=== PATIENT | female | born 1930 | race Caucasian/White ===

== ENCOUNTER 2018-01-27 09:18 | Inpatient (IN) ==
--- NOTE | 2018-01-27 09:51 | ED ---
HPI General Chief Complaint: Shortness of Breath/Dyspnea Stated Complaint: Chest Pains/Evac Source: patient Mode of arrival: EMS Limitations: no limitations History of Present Illness The patient is a 87-year-old female who presents to the emergency department via EMS for shortness of breath. The patient states she developed shortness of breath this morning, became short of breath when going to the bathroom. The patient arrived via EMS who provided the patient nebulizers and Solu-Medrol with oxygen prior to arrival. The patient states her symptoms have improved. Patient denies any known history of pulmonary disorders including COPD, bronchitis, pneumonia, congestive heart failure, and pulmonary embolism. The patient states she lives at home with her 5 grandchildren. The patient states she recently broke her left hip. She does note swelling of the right lower extremity, is unable to quantify the time the right lower extremity has been swollen. The patient is a somewhat limited historian but denies any chest pain, nausea, vomiting, abdominal pain, fever, chills, or sweats. She does note her symptoms improved after medications were administered by EMS. MD Complaint: shortness of breath Onset (ago): hour(s) Severity: moderate Consistency/Duration: improved Relieving factors: bronchodilators and medication Exacerbating factors: nothing Associated symptoms: denies other symptoms Treatment prior to arrival: oxygen, bronchodilator and other Related Data Home oxygen amount: none Home Medications Medication Instructions Recorded Confirmed No Known Home Medications 01/27/18 01/27/18 Allergies Allergy/AdvReac Type Severity Reaction Status Date / Time No Known Allergies Allergy Unverified 01/27/18 09:20 Review of Systems ROS: all other systems reviewed are negative [facility] Medical History Medical History Patient denies medical problems (Acute) Surgical History Surgical History No history of previous surgery (Acute) Social History Social History Substance History: No History of Abuse Second Hand Smoke Exposure: No Smoking Status: Never smoker How Often Do You Have a Drink Containing Alcohol: Never Recent Travel in [facility] within the Last 8 Weeks: No Recent Out of Country Travel within the Last 8 Weeks: No Immunization History Tetanus Immunization: Unsure Hx Influenza Vaccine This Season: No Exam Narrative Exam Narrative: GENERAL: Awake, alert, pleasant 87-year-old female who appears her stated age and is in mild respiratory distress. SKIN: Focused skin assessment warm/dry. HEAD: Atraumatic. Normocephalic. EYES: Pupils equal and round. No scleral icterus. No injection or drainage. ENT: No nasal bleeding or discharge. Poor dentition. Dry mucous membranes. NECK: Trachea midline. No JVD. CARDIOVASCULAR: Regular rate and rhythm. No murmur appreciated. Heart rate in the 90s. RESPIRATORY: No accessory muscle use. Rales in the bases bilaterally. GASTROINTESTINAL: Abdomen soft, non-tender, nondistended. MUSCULOSKELETAL: The right lower extremity appears slightly longer than the left lower extremity. The right calf is edematous and swollen when compared to the left. Positive distal pulses. The patient is able flex the hips and knees bilaterally. Back: No CVA tenderness. NEUROLOGICAL: Awake and alert. No obvious cranial nerve deficits. Motor grossly within normal limits. Normal speech. PSYCHIATRIC: Appropriate mood and affect; insight and judgment normal. Course Initial Documented Vital Signs Temperature 97.5 F L 01/27/18 09:20 Pulse Rate 97 H 01/27/18 09:20 Respiratory Rate 20 01/27/18 09:20 Blood Pressure 148/84 H 01/27/18 09:20 Pulse Oximetry 92 L 01/27/18 09:20 Last Documented Vital Signs Temperature 97.5 F L 01/27/18 09:20 Pulse Rate 92 H 01/27/18 10:48 Respiratory Rate 20 01/27/18 10:48 Blood Pressure 128/72 01/27/18 10:48 Pulse Oximetry 95 01/27/18 10:48 Clinical Decision Support PERC Rule Age greater than or equal to 50: Yes HR greather than or equal to 100: No Sa02 on room air is less than 95%: Yes Unilateral Leg Swelling: Yes Hemoptysis: No Recent Surgery or Trauma: No Prior PE or DVT: No Hormone Use: No Medical Decision Making MDM Narrative Medical decision making narrative: IV was established, labs are drawn and sent, and the patient was placed on cardiac telemetry monitoring and continuous pulse oximetry monitoring. EKG was ordered and interpreted. Chest x-ray was obtained. Ultrasound was ordered of the right lower extremity to evaluate for DVT. Ultrasound is negative for DVT. Chest x-ray reveals pulmonary edema. BNP is greater than 1000. Troponin is positive at 0.85. The patient was administered aspirin and Lasix. The patient appears to have new onset CHF, therefore, will be admitted, may benefit from echocardiogram and cardiology evaluation. The patient's potassium was low at 3.0, will be replaced orally. Medical Screen Exam Complete: Yes Emergency Medical Condition: Yes Lab Data Lab results reviewed: Yes I reviewed the patient's lab results. Lab results narrative: Elevated troponin of 0.85, potassium 3.0. BNP of 1096. Result diagrams: 01/27/18 10:00 01/27/18 10:00 Lab Results 01/27/18 01/27/18 01/27/18 Range/Units 10:00 10:00 10:00 CBC w Diff Auto diff final WBC 11.0 (4.0-11.0) th/mm3 RBC 3.99 L (4.00-5.30) mil/mm3 Hgb 12.9 (11.6-15.3) gm/dL Hct 38.9 (35.0-46.0) % MCV 97.5 (80.0-100.0) fL MCH 32.3 (27.0-34.0) pg MCHC 33.2 (32.0-36.0) % RDW 14.6 (11.6-17.2) % Plt Count 160 (150-450) th/mm3 MPV 10.5 (7.0-11.0) fL Neut % (Auto) 86.6 H (16.0-70.0) % Lymph % (Auto) 7.0 L (9.0-44.0) % Izard % (Auto) 5.8 (0.0-8.0) % Eos % (Auto) 0.3 (0.0-4.0) % Baso % (Auto) 0.3 (0.0-2.0) % Neut # (Auto) 9.6 H (1.8-7.7) th/mm3 Lymph # (Auto) 0.8 L (1.0-4.8) th/mm3 Izard # (Auto) 0.6 (0.0-0.9) th/mm3 Eos # (Auto) 0.0 (0.0-0.4) th/mm3 Baso # (Auto) 0.0 (0.0-0.2) th/mm3 WBC Differential . Differential Comment . PT 11.1 (9.8-11.6) sec INR 1.1 Ratio APTT 21.7 L (24.3-30.1) sec Sodium 148 H (136-145) meq/L Potassium 3.0 L (3.5-5.1) meq/L Chloride 116 H (98-107) meq/L Carbon Dioxide 21.5 (21.0-32.0) meq/L Anion Gap 11 (5-15) meq/L BUN 19 H (7-18) mg/dL Creatinine 0.95 (0.50-1.00) mg/dL Estimated GFR 56 L (>89) mL/min Random Glucose 116 H (74-106) mg/dL Calcium 8.3 L (8.5-10.1) mg/dL Magnesium 2.1 (1.5-2.5) mg/dL Total Bilirubin 0.5 (0.2-1.0) mg/dL AST 22 (15-37) U/L ALT 19 (10-53) U/L Alkaline Phosphatase 57 (45-117) U/L Troponin I 0.85 H* (0.02-0.05) ng/mL B-Natriuretic Peptide (0-100) pg/mL Total Protein 6.5 (6.4-8.2) g/dL Albumin 3.1 L (3.4-5.0) g/dL Urine Color (Yellw/Straw) Urine Clarity (Clear) Urine pH (5.0-8.5) Ur Specific [place] (1.002-1.035) Urine Protein (Neg-Trace) mg/dL Urine Glucose (UA) (Negative) mg/dL Urine Ketones (Negative) mg/dL Urine Occult Blood (Negative) Urine Nitrate (Negative) Urine Bilirubin (Negative) Urine Urobilinogen (Less than 2) mg/dL Ur Leukocyte Esterase (Negative) Urine RBC (0-3) /hpf Urine WBC (0-5) /hpf Ur Squamous Epith Cells (0-5) /hpf Urine Bacteria (None) /hpf Micro UA Comment Ur Microscopic Review Urine Culture Comments 01/27/18 01/27/18 Range/Units 10:00 10:00 CBC w Diff WBC (4.0-11.0) th/mm3 RBC (4.00-5.30) mil/mm3 Hgb (11.6-15.3) gm/dL Hct (35.0-46.0) % MCV (80.0-100.0) fL MCH (27.0-34.0) pg MCHC (32.0-36.0) % RDW (11.6-17.2) % Plt Count (150-450) th/mm3 MPV (7.0-11.0) fL Neut % (Auto) (16.0-70.0) % Lymph % (Auto) (9.0-44.0) % Izard % (Auto) (0.0-8.0) % Eos % (Auto) (0.0-4.0) % Baso % (Auto) (0.0-2.0) % Neut # (Auto) (1.8-7.7) th/mm3 Lymph # (Auto) (1.0-4.8) th/mm3 [place] # (Auto) (0.0-0.9) th/mm3 Eos # (Auto) (0.0-0.4) th/mm3 Baso # (Auto) (0.0-0.2) th/mm3 WBC Differential Differential Comment PT (9.8-11.6) sec INR Ratio APTT (24.3-30.1) sec Sodium (136-145) meq/L Potassium (3.5-5.1) meq/L Chloride (98-107) meq/L Carbon Dioxide (21.0-32.0) meq/L Anion Gap (5-15) meq/L BUN (7-18) mg/dL Creatinine (0.50-1.00) mg/dL Estimated GFR (>89) mL/min Random Glucose (74-106) mg/dL Calcium (8.5-10.1) mg/dL Magnesium (1.5-2.5) mg/dL Total Bilirubin (0.2-1.0) mg/dL AST (15-37) U/L ALT (10-53) U/L Alkaline Phosphatase (45-117) U/L Troponin I (0.02-0.05) ng/mL B-Natriuretic Peptide 1096 H (0-100) pg/mL Total Protein (6.4-8.2) g/dL Albumin (3.4-5.0) g/dL Urine Color Yellow (Yellw/Straw) Urine Clarity Slightly cloudy (Clear) Urine pH 6.0 (5.0-8.5) Ur Specific [place] Greater/equal 1.030 (1.002-1.035) Urine Protein Negative (Neg-Trace) mg/dL Urine Glucose (UA) Negative (Negative) mg/dL Urine Ketones Negative (Negative) mg/dL Urine Occult Blood Negative (Negative) Urine Nitrate Positive H (Negative) Urine Bilirubin Negative (Negative) Urine Urobilinogen 1.0 (Less than 2) mg/dL Ur Leukocyte Esterase Negative (Negative) Urine RBC 0-3 (0-3) /hpf Urine WBC 0-5 (0-5) /hpf Ur Squamous Epith Cells 0-5 (0-5) /hpf Urine Bacteria Many H (None) /hpf Micro UA Comment Cath-culture ind Ur Microscopic Review Microscopic reviewed Urine Culture Comments Cath-cult indicated Imaging Data Attestation: I personally reviewed and interpreted this imaging study as follows : My impression: Pulmonary edema. Radiologist's impression: Chest X-Ray 01/27/18 09:44 CONCLUSION: 1. Cardiomegaly. 2. Small-moderate bilateral pleural effusions. 3. Moderate pulmonary vascular congestion. 4. Degenerative changes and scoliosis of the thoracolumbar spine. 5. Compression deformity is involving the lower thoracic spine. Venous Doppler Study 01/27/18 09:44 CONCLUSION: 1. Negative for deep venous thrombosis Discharge Plan Discharge Disposition Patient Disposition: 30 Still Patient Discharge Condition Condition: Stable Discharge Details Diagnosis: Congestive heart failure, Pulmonary edema, Elevated troponin Physicians Team ED Provider: James Rodríguez Rxs /Orders / Referrals /Forms Prescriptions: No Action No Known Home Medications RF: 0 Discharge Interventions Interventions: Vital Signs Last Done: 01/27/18 10:48 Status ED Status: Pending Admission
[2018-01-27 10:04] LABS: Baso % (Auto) 0.3 % (0.0-2.0); Eos % (Auto) 0.3 % (0.0-4.0); Hematocrit 38.9 % (35.0-46.0); Hemoglobin 12.9 gm/dL (11.6-15.3); Lymph # (Auto) 0.8 th/mm3 (1.0-4.8); Mean Corpuscular HGB Conc 33.2 % (32.0-36.0); Mean Corpuscular Hemoglobin 32.3 pg (27.0-34.0); Mean Corpuscular Volume 97.5 fL (80.0-100.0); Mean Platelet Volume 10.5 fL (7.0-11.0); Mono # (Auto) 0.6 th/mm3 (0.0-0.9); Mono % (Auto) 5.8 % (0.0-8.0); Neut # (Auto) 9.6 th/mm3 (1.8-7.7); Neut % (Auto) 86.6 % (16.0-70.0); Platelet Count 160 th/mm3 (150-450); Red Blood Count 3.99 mil/mm3 (4.00-5.30); Red Cell Distribution Width 14.6 % (11.6-17.2)
[2018-01-27 10:05] LABS: Bilirubin,Urine Negative (Negative); Clarity,Urine Slightly Cloudy (Clear); Color,Urine Yellow (Yellw/Straw); Glucose,Urine (UA) Negative (Negative); Leukocyte Esterase,Urine Negative (Negative); Nitrite,Urine Positive (Negative); Specific Gravity,Urine Greater/Equal 1.030 (1.002-1.035)
[2018-01-27 10:11] LABS: Bacteria,Urine Many /hpf; RBC,Urine 0-3 /hpf (0-3); Squamous Epithelial Cell,Urine 0-5 /hpf (0-5); WBC,Urine 0-5 /hpf (0-5)
[2018-01-27 10:13] LABS: Chloride 116 meq/L (98-107); Sodium 148 meq/L (136-145)
[2018-01-27 10:16] LABS: Calcium 8.3 mg/dL (8.5-10.1)
[2018-01-27 10:17] LABS: Albumin 3.1 g/dL (3.4-5.0); Anion Gap 11 meq/L (5-15); Blood Urea Nitrogen 19 mg/dL (7-18); Carbon Dioxide 21.5 meq/L (21.0-32.0); Glucose,Random 116 mg/dL (74-106); Magnesium 2.1 mg/dL (1.5-2.5)
[2018-01-27 10:20] LABS: Alanine Aminotransferase 19 U/L (10-53); Aspartate Aminotransferase 22 U/L (15-37); Glomerular Filtration Rate 56 mL/min (>89)
[2018-01-27 10:21] LABS: Total Protein 6.5 g/dL (6.4-8.2)
[2018-01-27 10:23] LABS: Alkaline Phosphatase 57 U/L (45-117)
[2018-01-27 10:24] LABS: INR 1.1 Ratio; Prothrombin Time 11.1 sec (9.8-11.6)
[2018-01-27 10:25] LABS: Activated Partial Thrombo Time 21.7 sec (24.3-30.1)
[2018-01-27 10:35] LABS: Troponin I 0.85 ng/mL (0.02-0.05)
--- NOTE | 2018-01-27 10:40 | US ---
EXAM DATE: 01/27/2018 10:27 AM EDT AGE/SEX: 87 years / Female INDICATIONS: Shortness of breath. Right leg swelling. CLINICAL DATA: This is the patient's initial encounter. Patient reports that signs and symptoms have been present for 1 day and indicates a pain score of 4/10. MEDICAL/SURGICAL HISTORY: . Shortness of breath. Right leg swelling. Left hip break. None. COMPARISON: No prior exams available for comparison. TECHNIQUE: Venous ultrasound of both lower extremities was performed from the inguinal ligament to t he proximal calf. Real-time, color Doppler and spectral tracing, compression and augmentation techni ques were used. FINDINGS: Normal compression of the deep venous system from the inguinal region to the proximal calf . No echogenic clot is seen. Normal response of the venous system to augmentation and respiration. CONCLUSION: 1. Negative for deep venous thrombosis Electronically signed by: Varun Sharma MD 01/27/2018 10:39 AM EDT
--- NOTE | 2018-01-27 10:43 | XR ---
EXAM DATE: 01/27/2018 10:28 AM EDT AGE/SEX: 87 years / Female INDICATIONS: Short of breath. CLINICAL DATA: This is the patient's initial encounter. Patient reports that signs and symptoms have been present for 1 day and indicates a pain score of 4/10. MEDICAL/SURGICAL HISTORY: Non-responsive. None. COMPARISON: No prior exams available for comparison. FINDINGS: The heart is enlarged. Small-moderate bilateral pleural effusions are noted. Moderate pulmonary vascu lar congestion is noted. Degenerative changes and scoliosis of the thoracolumbar spine are noted. Com pression deformities are noted within the lower thoracic spine. CONCLUSION: 1. Cardiomegaly. 2. Small-moderate bilateral pleural effusions. 3. Moderate pulmonary vascular congestion. 4. Degenerative changes and scoliosis of the thoracolumbar spine. 5. Compression deformity is involving the lower thoracic spine. Electronically signed by: Jerson Martini MD 01/27/2018 10:42 AM EDT
[2018-01-27] MEDS ORDERED: Senna/Docusate Sodium 8.6/50 MG Tablet PO PRN (11:50)
[2018-01-27] MEDS ORDERED: Aluminum/Magnesium/Simethacone Susp 30 ML UDC PO PRN (11:50)
[2018-01-27] MEDS ORDERED: Docusate Sodium 100 MG Capsule PO PRN (11:50)
[2018-01-27] MEDS: Heparin - SQ 10,000 UNITS/ML Vial SQ SCH ×2 (12:23→20:51)
--- NOTE | 2018-01-27 12:57 | P.HP ---
History of Present Illness Primary Care Physician: No Primary Care Physician Chief Complaint: Shortness of breath History of Present Illness: This is a 87-year-old female with a history of hypertension. She was brought in by EMS because of shortness of breath. Patient was in the usual state of health until this morning after using the restroom when she complained of difficulty breathing associated with palpitations and dizziness. She also reported that her chest was hurting. Patient is a poor historian. She is hard of hearing and speech is difficult to understand as she is edentulous. EMS provided nebulization and Solu-Medrol as well as oxygen. Prehospital EKG independently reviewed by me with sinus rhythm T changes in the inferior and lateral leads with poor R-wave progression. By the time patient arrived in the emergency room, symptoms have improved. She also received 40 milligrams IV Lasix. Currently tolerating 3 L nasal cannula. Repeat EKG shows sinus rhythm poor R progression with T inversion in V2 through V4. Patient also has chronic bilateral lower extremity swelling denies pain. She reports she recently broke her left hip. 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 She uses a walker. Doppler sonogram shows no DVT. All other systems reviewed negative. Patient seen with daughter. Case discussed with ER and cardiology. Inpatient Certification: I certify that the inpatient services were ordered in accordance with Medicare regulations governing the order. This includes certification that hospital inpatient services are reasonable and necessary and in the case of services not specified as inpatient-only under 42 CFR 419.22(n), that they are appropriately provided as inpatient services in accordance to with the 2-midnight benchmark under 43 CFR 412.3(e) Estimated Total Length of Stay (Days): 2 Plans for Post Hospital Care: Not yet determined Review of Systems All other systems reviewed negative except as stated in HPI PMFSH - History History Provided By: Nurse [employer] / EMT - Medical History Medical History: Medical History (Last Updated 01/27/18 @ 12:51 by Luis Hutchinson MD) Patient denies medical problems (Acute) HTN (hypertension) - Surgical History Surgical History: Surgical History (Last Updated 01/27/18 @ 12:52 by Luis Hutchinson MD) No history of previous surgery (Acute) History of hip surgery - Family History Family History: Family History (Last Updated 01/27/18 @ 12:52 by Luis Hutchinson MD) Mother CVA (cerebral vascular accident) - Tobacco History Second Hand Smoke Exposure: No Smoking Status: Never smoker - Alcohol History How Often Do You Have a Drink Containing Alcohol: Never - Substance Use History Substance History: No History of Abuse - Travel History Recent Travel in the [place] Within the Last 8 Weeks: No Recent Travel Out of the Country Within the Last 8 Weeks: No - Immunization History Tetanus Immunization: Unsure Hx Influenza Vaccine This Season: No Medications and Allergies Active Medications: Active Medications Acetaminophen (Tylenol) 650 mg PO Q4H PRN PRN Reason: Temp > 100.4 Al Hydrox/Mg Hydrox/Simethicone (Mag-Al Plus Susp Liq) 30 ml PO Q6H PRN PRN Reason: DYSPEPSIA Al Hydroxide/Mg Hydroxide (Milk Of Magnesia Liq) 30 ml PO DAILY PRN PRN Reason: SEVERE CONSITIPATION Aspirin (Aspirin Chew) 81 mg PO DAILY [facility] Calcium Carbonate (Tums Chew) 1,000 mg CHEW TID PRN PRN Reason: DYSPEPSIA Docusate Sodium (Colace) 100 mg PO BID PRN PRN Reason: MILD CONSTIPATION Furosemide (Lasix Inj) 40 mg IV.PUSH BID@0900,1800 [facility] Heparin Sodium (Porcine) (Heparin Inj) 5,000 units SQ Q12HR [facility] Last Admin: 01/27/18 12:23 Dose: 5,000 units Nitroglycerin (Nitrostat Sl) 0.4 mg SL Q5M PRN PRN Reason: CHEST PAIN Ondansetron HCl (Zofran Inj) 4 mg IV.PUSH Q6H PRN PRN Reason: NAUSEA Potassium Chloride (K-Dur) 20 meq PO BID [facility] Senna/Docusate Sodium (Lourdes-Colace) 1 tab PO BID PRN PRN Reason: MODERATE - SEVERE CONSTIPATION Sodium Chloride (Ns Flush) 2 ml IV.FLUSH BID [facility] Sodium Chloride (Ns Flush) 2 ml IV.FLUSH UNSCH PRN PRN Reason: FLUSH AFTER USING IV ACCESS Allergies Allergy/AdvReac Type Severity Reaction Status Date / Time No Known Allergies Allergy Unverified 01/27/18 09:20 Home Medications Medication Instructions Recorded Confirmed Type No Known Home Medications 01/27/18 01/27/18 History Exam Vital signs: Vital Signs 01/27/18 09:20 01/27/18 09:44 09/21/18 10:48 Temperature 97.5 F L Pulse Rate 97 H 92 H Respiratory Rate 20 20 Blood Pressure 148/84 H 128/72 Pulse Oximetry 92 L 93 L 95 Intake & Output 01/26/18 01/27/18 01/27/18 18:59 06:59 18:59 Weight 46 kg Narrative: GENERAL: Well-developed, well-nourished in no distress on 3 L nasal cannula SKIN: Warm and dry. HEAD: Atraumatic. Normocephalic. EYES: Pupils equal and round. No scleral icterus. No injection or drainage. ENT: No nasal bleeding or discharge. Mucous membranes pink and moist. NECK: Trachea midline. Positive JVD CARDIOVASCULAR: Regular rate and rhythm. RESPIRATORY: No accessory muscle use. Decreased breath sounds equal bilaterally. Right basal crackles GASTROINTESTINAL: Abdomen soft, non-tender, nondistended. MUSCULOSKELETAL: Extremities without clubbing, cyanosis with bilateral lower extremity pitting edema. Left lower extremity shorter. NEUROLOGICAL: Awake and alert. No obvious cranial nerve deficits. Motor grossly within normal limits. Five out of 5 muscle strength in the arms and legs. It is hard to understand PSYCHIATRIC: Appropriate mood and affect; insight and judgment normal. Results - Labs CBC & Chem 7: 01/27/18 10:00 01/27/18 10:00 Labs: Laboratory Results - last 24 hr 01/27/18 01/27/18 01/27/18 10:00 10:00 10:00 CBC w Diff Auto diff final WBC 11.0 RBC 3.99 L Hgb 12.9 Hct 38.9 MCV 97.5 MCH 32.3 MCHC 33.2 RDW 14.6 Plt Count 160 MPV 10.5 Neut % (Auto) 86.6 H Lymph % (Auto) 7.0 L Charles % (Auto) 5.8 Eos % (Auto) 0.3 Baso % (Auto) 0.3 Neut # (Auto) 9.6 H Lymph # (Auto) 0.8 L Charles # (Auto) 0.6 Eos # (Auto) 0.0 Baso # (Auto) 0.0 WBC Differential . Differential Comment . PT 11.1 INR 1.1 APTT 21.7 L Sodium 148 H Potassium 3.0 L Chloride 116 H Carbon Dioxide 21.5 Anion Gap 11 BUN 19 H Creatinine 0.95 Estimated GFR 56 L Random Glucose 116 H Calcium 8.3 L Magnesium 2.1 Total Bilirubin 0.5 AST 22 ALT 19 Alkaline Phosphatase 57 Troponin I 0.85 H* B-Natriuretic Peptide Total Protein 6.5 Albumin 3.1 L Urine Color Urine Clarity Urine pH Ur Specific [place] Urine Protein Urine Glucose (UA) Urine Ketones Urine Occult Blood Urine Nitrate Urine Bilirubin Urine Urobilinogen Ur Leukocyte Esterase Urine RBC Urine WBC Ur Squamous Epith Cells Urine Bacteria Micro UA Comment Ur Microscopic Review Urine Culture Comments 01/27/18 01/27/18 10:00 10:00 CBC w Diff WBC RBC Hgb Hct MCV MCH MCHC RDW Plt Count MPV Neut % (Auto) Lymph % (Auto) Charles % (Auto) Eos % (Auto) Baso % (Auto) Neut # (Auto) Lymph # (Auto) Charles # (Auto) Eos # (Auto) Baso # (Auto) WBC Differential Differential Comment PT INR APTT Sodium Potassium Chloride Carbon Dioxide Anion Gap BUN Creatinine Estimated GFR Random Glucose Calcium Magnesium Total Bilirubin AST ALT Alkaline Phosphatase Troponin I B-Natriuretic Peptide 1096 H Total Protein Albumin Urine Color Yellow Urine Clarity Slightly cloudy Urine pH 6.0 Ur Specific [place] Greater/equal 1.030 Urine Protein Negative Urine Glucose (UA) Negative Urine Ketones Negative Urine Occult Blood Negative Urine Nitrate Positive H Urine Bilirubin Negative Urine Urobilinogen 1.0 Ur Leukocyte Esterase Negative Urine RBC 0-3 Urine WBC 0-5 Ur Squamous Epith Cells 0-5 Urine Bacteria Many H Micro UA Comment Cath-culture ind Ur Microscopic Review Microscopic reviewed Urine Culture Comments Cath-cult indicated - Imaging Impressions Chest X-Ray 01/27/18 09:44 CONCLUSION: 1. Cardiomegaly. 2. Small-moderate bilateral pleural effusions. 3. Moderate pulmonary vascular congestion. 4. Degenerative changes and scoliosis of the thoracolumbar spine. 5. Compression deformity is involving the lower thoracic spine. Venous Doppler Study 01/27/18 09:44 CONCLUSION: 1. Negative for deep venous thrombosis Caprini VTE Risk Assessment Caprini VTE Risk Assessment: Moderate/High Risk (score >= 2) Caprini Risk Assessment Model: Point Value = 1 Point Value = 2 Point Value = 3 Point Value = 5 Age 41-60 Minor surgery BMI > 25 kg/m2 Swollen legs Varicose veins or History of unexplained or recurrent spontaneous Oral contraceptives or hormone replacement Sepsis (< 1 month) Serious lung disease, including pneumonia (< 1 month) Abnormal pulmonary function Acute myocardial infarction Congestive heart failure (< 1 month) History of inflammatory bowel disease Medical patient at bed rest Age 61-74 Arthroscopic surgery Major open surgery (> 45 min) Laparoscopic surgery (> 45 min) Malignancy Confined to bed (> 72 hours) Immobilizing plaster cast Central venous access Age >= 75 History of VTE Family history of VTE Factor V Leiden Prothrombin [id number] Lupus anticoagulant Anticardiolipin antibodies Elevated serum homocysteine Heparin-induced thrombocytopenia Other congenital or acquired thrombophilia Stroke (< 1 month) Elective arthroplasty Hip, pelvis, or leg fracture Acute spinal cord injury (< 1 month) Prophylaxis Regimen: Total Risk Factor Score Risk Level Prophylaxis Regimen 0-1 Low Early ambulation 2 Moderate Order ONE of the following: *Sequential Compression Device (SCD) *Heparin 5000 units SQ BID 3-4 Higher Order ONE of the following medications: *Heparin 5000 units SQ TID *Enoxaparin/Lovenox 40 mg SQ daily (WT < 150 kg, CrCl > 30 mL/min) *Enoxaparin/Lovenox 30 mg SQ daily (WT < 150 kg, CrCl > 10-29 mL/min) *Enoxaparin/Lovenox 30 mg SQ BID (WT < 150 kg, CrCl > 30 mL/min) AND/OR *Sequential Compression Device (SCD) 5 or more Highest Order ONE of the following medications: *Heparin 5000 units SQ TID (Preferred with Epidurals) *Enoxaparin/Lovenox 40 mg SQ daily (WT < 150 kg, CrCl > 30 mL/min) *Enoxaparin/Lovenox 30 mg SQ daily (WT < 150 kg, CrCl > 10-29 mL/min) *Enoxaparin/Lovenox 30 mg SQ BID (WT < 150 kg, CrCl > 30 mL/min) AND *Sequential Compression Device (SCD) Assessment and Plan - Plan This is an 87-year-old female with a history of hypertension. She presents to the emergency department because of shortness of breath yesterday with chest pain, palpitations and dizziness. Chest x-ray interpreted by me with cardiomegaly and bilateral pleural effusion consistent with pulmonary edema. EKG tracing with no ST elevation. Troponin 0.85. BNP 1000 New onset heart failure with hypoxia. Patient will be admitted for further treatment. Continue diuresis with IV Lasix, CHF education, I/O and monitor weight. Oxygen to keep saturation at least 92%. Obtain 2D echo. NSTEMI. Currently pain-free. Trend cardiac enzymes. Start aspirin, beta- delma and sublingual nitroglycerin. Consult cardiology and patient will be transferred to [facility]. Hypokalemia. Replace with 80 mg p.o. potassium 1. Repeat BMP and magnesium in the morning. Chronic bilateral lower extremity swelling. Doppler sonogram negative for DVT on the right lower extremity Abnormal urinalysis. No UTI symptoms. Follow-up urine culture DVT prophylaxis with SCD and subcu heparin Discharge Planning: Transfer to [facility]
--- NOTE | 2018-01-27 14:11 | ECHRPT ---
Indication: HEART FAILURE CONCLUSIONS Normal left ventricular size. Wall thickness is normal. The left ventricular systolic function is severely reduced with an estimated ejection fraction in th e range of 30-35%. There is diffuse global hypokinesis with distinct regional wall motion abnormalities. There is anterior, anterolateral, apical, and inferoapical akinesis. The left atrial size is [id number] dilated. [id number] mitral valve regurgitation. There is moderate tricuspid regurgitation. The estimated pulmonary arterial pressure is 43.6 mmHg. A right sided pleural effusion is present. BP: / HR: Rhythm: Sinus MEASUREMENTS (Male / Female) Normal Values Technical Quality:Very technically difficult study DOPPLER AV Peak Velocity 116.0 cm/s AV Peak Gradient 5.4 mmHg AV Mean Gradient 3.0 mmHg AV Velocity Time Integral 20.0 cm LVOT Peak Velocity 68.4 cm/s LVOT Peak Gradient 1.9 mmHg LVOT Velocity Time Integral 11.9 cm Mitral E Point Velocity 64.2 cm/s Mitral A Point Velocity 96.3 cm/s Mitral E to A Ratio 0.7 LV E' Lateral Velocity 3.8 cm/s Mitral E to LV E' Lateral Ratio 16.9 LV E' Septal Velocity 3.4 cm/s Mitral E to LV E' Septal Ratio 18.8 TR Peak Velocity 290.0 cm/s TR Peak Gradient 33.6 mmHg Right Atrial Pressure 10.0 mmHg Pulmonary Artery Systolic Pressu 43.6 mmHg Right Ventricular Systolic Press 43.6 mmHg PV Peak Velocity 54.9 cm/s PV Peak Gradient 1.2 mmHg FINDINGS LEFT VENTRICLE Normal left ventricular size. Wall thickness is normal. The left ventricular systolic function is severely reduced with an estimated ejection fraction in th e range of 30-35%. There is diffuse global hypokinesis with distinct regional wall motion abnormalities. There is anterior, anterolateral, apical, and inferoapical akinesis. RIGHT VENTRICLE Normal right ventricular size and systolic function. LEFT ATRIUM The left atrial size is ixyc-[id number] dilated. RIGHT ATRIUM The right atrial size is normal. ATRIAL SEPTUM No atrial level shunt is demonstrated by color flow Doppler interrogation. AORTA The aortic root and proximal ascending aorta are not well visualized. MITRAL VALVE Qqmx-[id number] mitral valve regurgitation. AORTIC VALVE Trileaflet aortic valve. No aortic valve stenosis or regurgitation. TRICUSPID VALVE There is moderate tricuspid regurgitation. The estimated pulmonary arterial pressure is 43.6 mmHg. PULMONARY VALVE No pulmonary valve regurgitation or stenosis. VESSELS The inferior vena cava is normal in size. PERICARDIUM No pericardial effusion. A right sided pleural effusion is present. Javier Persaud MD, FACC (Electronically Signed) Final Date:27 January 2018 14:10
--- NOTE | 2018-01-27 15:48 | P.CONCA ---
History of Present Illness Primary Care Provider: No Primary Care Physician Chief Complaint: Shortness of breath History of Present Illness: 87-year-old female with no known past medical history who presented for acute onset of shortness of breath today. Patient is a poor historian, hard of hearing, has some slurred speech. She reports some recent chest pain but not currently. Her chest x-ray shows moderate bilateral pleural effusions and pulmonary edema. She has quite a bit of leg swelling. She has been started on Lasix. Her EKG shows poor R-wave progression in the anterior leads with anterior T-wave inversions adjusting ischemia. She denies any prior history of heart disease. Initial troponin 0.85. BNP 1000. Patient is awaiting transfer up to [facility] for consideration of ischemic evaluation. An echocardiogram is already been done which showed EF 3035% with diffuse global hypokinesis with distinct regional wall motion abnormalities. Review of Systems All other systems reviewed negative except as stated in HPI PMFSH - History History Provided By: Patient, Medical Record - Medical History Medical History: Medical History (Last Updated 01/27/18 @ 12:51 by Luis Hutchinson MD) Patient denies medical problems (Acute) HTN (hypertension) - Surgical History Surgical History: Surgical History (Last Updated 01/27/18 @ 12:52 by Luis Hutchinson MD) No history of previous surgery (Acute) History of hip surgery - Family History Family History: Family History (Last Updated 01/27/18 @ 12:52 by Luis Hutchinson MD) Mother CVA (cerebral vascular accident) - Tobacco History Second Hand Smoke Exposure: No Smoking Status: Never smoker - Alcohol History How Often Do You Have a Drink Containing Alcohol: Never - Substance Use History Substance History: No History of Abuse - Travel History Recent Travel in the [place] Within the Last 8 Weeks: No Recent Travel Out of the Country Within the Last 8 Weeks: No - Immunization History Tetanus Immunization: Unsure Hx Influenza Vaccine This Season: No Medications and Allergies Allergies Allergy/AdvReac Type Severity Reaction Status Date / Time No Known Allergies Allergy Unverified 01/27/18 09:20 Home Medications Medication Instructions Recorded Confirmed Type No Known Home Medications 01/27/18 01/27/18 History Active Medications: Active Medications Acetaminophen (Tylenol) 650 mg PO Q4H PRN PRN Reason: Temp > 100.4 Al Hydrox/Mg Hydrox/Simethicone (Mag-Al Plus Susp Liq) 30 ml PO Q6H PRN PRN Reason: DYSPEPSIA Al Hydroxide/Mg Hydroxide (Milk Of Magnesia Liq) 30 ml PO DAILY PRN PRN Reason: SEVERE CONSITIPATION Aspirin (Aspirin Chew) 81 mg PO DAILY [facility] Calcium Carbonate (Tums Chew) 1,000 mg CHEW TID PRN PRN Reason: DYSPEPSIA Docusate Sodium (Colace) 100 mg PO BID PRN PRN Reason: MILD CONSTIPATION Furosemide (Lasix Inj) 40 mg IV.PUSH BID@0900,1800 [facility] Heparin Sodium (Porcine) (Heparin Inj) 5,000 units SQ Q12HR [facility] Last Admin: 01/27/18 12:23 Dose: 5,000 units Metoprolol Tartrate (Lopressor) 12.5 mg PO BID [facility] Nitroglycerin (Nitrostat Sl) 0.4 mg SL Q5M PRN PRN Reason: CHEST PAIN Ondansetron HCl (Zofran Inj) 4 mg IV.PUSH Q6H PRN PRN Reason: NAUSEA Potassium Chloride (K-Dur) 20 meq PO BID [facility] Senna/Docusate Sodium (Lourdes-Colace) 1 tab PO BID PRN PRN Reason: MODERATE - SEVERE CONSTIPATION Sodium Chloride (Ns Flush) 2 ml IV.FLUSH BID [facility] Sodium Chloride (Ns Flush) 2 ml IV.FLUSH UNSCH PRN PRN Reason: FLUSH AFTER USING IV ACCESS Exam Vital signs: Vital Signs 01/27/18 09:20 01/27/18 09:44 01/27/18 10:48 Temperature 97.5 F L Pulse Rate 97 H 92 H Respiratory Rate 20 20 Blood Pressure 148/84 H 128/72 Pulse Oximetry 92 L 93 L 95 01/27/18 13:27 01/27/18 14:36 Temperature Pulse Rate 66 64 Respiratory Rate 18 16 Blood Pressure 140/72 Pulse Oximetry 94 L 92 L Intake & Output 01/26/18 01/27/18 01/27/18 18:59 06:59 18:59 Weight 101 lb 6.602 oz Other: # Urine Diapers 4 Narrative: GENERAL: Well-developed fair-nourished. Thin, frail elderly female. Currently stable and appears comfortable on 2 L O2. NECK: No carotid bruits. No JVD. CARDIOVASCULAR: Regular rate and rhythm. No murmur appreciated. RESPIRATORY: No accessory muscle use. Diminished breath sounds in the bases. MUSCULOSKELETAL: No clubbing or cyanosis. 3+ bilateral lower extremity pitting edema. NEUROLOGICAL: Awake and alert. Slurred speech. Results 01/27/18 10:00 01/27/18 10:00 Cardiac Enzymes 01/27/18 01/27/18 Range/Units 10:00 10:00 AST 22 (15-37) U/L Troponin I 0.85 H* (0.02-0.05) ng/mL B-Natriuretic Peptide 1096 H (0-100) pg/mL Coagulation 01/27/18 01/27/18 Range/Units 10:00 10:00 PT 11.1 (9.8-11.6) sec APTT 21.7 L (24.3-30.1) sec B-Natriuretic Peptide 1096 H (0-100) pg/mL CBC 01/27/18 Range/Units 10:00 WBC 11.0 (4.0-11.0) th/mm3 RBC 3.99 L (4.00-5.30) mil/mm3 Hgb 12.9 (11.6-15.3) gm/dL Hct 38.9 (35.0-46.0) % Plt Count 160 (150-450) th/mm3 Neut # (Auto) 9.6 H (1.8-7.7) th/mm3 Lymph # (Auto) 0.8 L (1.0-4.8) th/mm3 [place] # (Auto) 0.6 (0.0-0.9) th/mm3 Eos # (Auto) 0.0 (0.0-0.4) th/mm3 Baso # (Auto) 0.0 (0.0-0.2) th/mm3 Comprehensive Metabolic Panel 01/27/18 Range/Units 10:00 Sodium 148 H (136-145) meq/L Potassium 3.0 L (3.5-5.1) meq/L Chloride 116 H (98-107) meq/L Carbon Dioxide 21.5 (21.0-32.0) meq/L BUN 19 H (7-18) mg/dL Creatinine 0.95 (0.50-1.00) mg/dL Calcium 8.3 L (8.5-10.1) mg/dL AST 22 (15-37) U/L ALT 19 (10-53) U/L Alkaline Phosphatase 57 (45-117) U/L Total Protein 6.5 (6.4-8.2) g/dL Albumin 3.1 L (3.4-5.0) g/dL Intake and Output 01/27/18 01/27/18 01/27/18 06:59 14:59 22:59 Other: # Urine Diapers 4 Weight 101 lb 6.602 oz Patient Weight 01/28/18 06:59 Weight 101 lb 6.602 oz - Imaging and Cardiology Imaging: Impressions Chest X-Ray 01/27/18 09:44 CONCLUSION: 1. Cardiomegaly. 2. Small-moderate bilateral pleural effusions. 3. Moderate pulmonary vascular congestion. 4. Degenerative changes and scoliosis of the thoracolumbar spine. 5. Compression deformity is involving the lower thoracic spine. Venous Doppler Study 01/27/18 09:44 CONCLUSION: 1. Negative for deep venous thrombosis Assessment and Plan - Plan 87-year-old female with no known past medical history who presented for acute onset of shortness of breath NSTEMI: Recent report of chest pain. Significant troponin elevation. Ischemic EKG changes. New-onset cardiomyopathy. Consider ischemic workup, invasive vs noninvasive. 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 Appears ischemic with regional wall motion abnormalities on echo. Start carvedilol. Acute systolic congestive heart failure: Continue IV diuresis. Monitor I's and O's. Discussed Condition With: Patient, ED RN, hospitalist, Dr. Persaud - Attending Attestation I agree with above Muscular medically stabilized with improvement in symptoms, and then we can decide further management strategy, invasive versus conservative medical management.
[2018-01-27] MEDS: Carvedilol 6.25 MG Tablet PO SCH (20:51)
[2018-01-27] MEDS ORDERED: Metoprolol Tartrate 25 MG Tablet PO SCH (21:00)
[2018-01-28 05:44] LABS: Calcium 8.2 mg/dL (8.5-10.1); Carbon Dioxide 23.4 meq/L (21.0-32.0)
[2018-01-28] MEDS: Heparin - SQ 10,000 UNITS/ML Vial SQ SCH ×2 (08:37→20:03)
[2018-01-28] MEDS: Carvedilol 6.25 MG Tablet PO SCH ×2 (08:37→20:03)
--- NOTE | 2018-01-28 09:43 | P.PNCA ---
Subjective Interval history: Patient reports she is still short of breath, but a little bit better than yesterday. She reports good urine output overnight. She put out 2000 mL since yesterday with diuresis with -1500 fluid balance. She reports she only gets discomfort in her chest when she takes a deep breath. Telemetry with some bradycardia in the 40s while sleeping, otherwise no significant arrhythmias. Medications and Allergies Active Medications: Active Medications Acetaminophen (Tylenol) 650 mg PO Q4H PRN PRN Reason: Temp > 100.4 Al Hydrox/Mg Hydrox/Simethicone (Mag-Al Plus Susp Liq) 30 ml PO Q6H PRN PRN Reason: DYSPEPSIA Al Hydroxide/Mg Hydroxide (Milk Of Magnesia Liq) 30 ml PO DAILY PRN PRN Reason: SEVERE CONSITIPATION Aspirin (Aspirin Chew) 81 mg PO DAILY [facility] Last Admin: 01/28/18 08:37 Dose: 81 mg Calcium Carbonate (Tums Chew) 1,000 mg CHEW TID PRN PRN Reason: DYSPEPSIA Carvedilol (Coreg) 6.25 mg PO BID [facility] Last Admin: 01/28/18 08:37 Dose: 6.25 mg Docusate Sodium (Colace) 100 mg PO BID PRN PRN Reason: MILD CONSTIPATION Furosemide (Lasix Inj) 40 mg IV.PUSH BID@0900,1800 [facility] Last Admin: 01/28/18 08:37 Dose: 40 mg Heparin Sodium (Porcine) (Heparin Inj) 5,000 units SQ Q12HR [facility] Last Admin: 01/28/18 08:37 Dose: 5,000 units Nitroglycerin (Nitrostat Sl) 0.4 mg SL Q5M PRN PRN Reason: CHEST PAIN Ondansetron HCl (Zofran Inj) 4 mg IV.PUSH Q6H PRN PRN Reason: NAUSEA Potassium Chloride (K-Dur) 20 meq PO BID [facility] Last Admin: 01/28/18 08:37 Dose: 20 meq Senna/Docusate Sodium (Lourdes-Colace) 1 tab PO BID PRN PRN Reason: MODERATE - SEVERE CONSTIPATION Sodium Chloride (Ns Flush) 2 ml IV.FLUSH BID [facility] Last Admin: 01/28/18 08:37 Dose: 2 ml Sodium Chloride (Ns Flush) 2 ml IV.FLUSH UNSCH PRN PRN Reason: FLUSH AFTER USING IV ACCESS Allergies Allergy/AdvReac Type Severity Reaction Status Date / Time No Known Allergies Allergy Unverified 01/27/18 09:20 Home Medications Medication Instructions Recorded Confirmed Type No Known Home Medications 01/27/18 01/27/18 History Physical Exam Vital signs: Vital Signs 01/27/18 09:44 01/27/18 10:48 01/27/18 11:00 Temperature Pulse Rate 92 H Respiratory Rate 20 Blood Pressure 128/72 Pulse Oximetry 93 L 95 95 01/27/18 13:27 01/27/18 14:36 01/27/18 17:31 Temperature Pulse Rate 66 64 69 Respiratory Rate 18 16 18 Blood Pressure 140/72 121/72 Pulse Oximetry 94 L 92 L 95 01/27/18 20:00 01/27/18 20:56 01/27/18 21:00 Temperature 98 F Pulse Rate 61 60 Respiratory Rate 18 Blood Pressure 130/85 Pulse Oximetry 93 L 94 L 01/27/18 22:58 01/27/18 23:58 01/28/18 00:00 Temperature 97.8 F Pulse Rate 61 56 L 56 L Respiratory Rate 18 Blood Pressure 112/76 Pulse Oximetry 94 L 01/28/18 01:00 01/28/18 02:00 01/28/18 03:00 Temperature Pulse Rate 61 63 62 Respiratory Rate Blood Pressure Pulse Oximetry 01/28/18 03:50 01/28/18 04:00 01/28/18 05:00 Temperature 98.1 F Pulse Rate 61 59 L 60 Respiratory Rate 18 Blood Pressure 106/66 Pulse Oximetry 94 L 01/28/18 06:00 Temperature Pulse Rate 63 Respiratory Rate Blood Pressure Pulse Oximetry Intake & Output 01/27/18 01/28/18 01/28/18 18:59 06:59 18:59 Intake Total 480 / 480 Output Total 1999 Balance -1520 / -1520 Weight 101 lb 6.602 oz 101 lb 6.602 oz Intake: Oral 480 / 480 Output: Urine 1999 Stool 0 / 0 Other: # Urine Diapers 4 Narrative: GENERAL: Well-developed fair-nourished. Thin, frail elderly female. in no acute distress. NECK: No carotid bruits. No JVD. CARDIOVASCULAR: Regular rate and rhythm. No murmur appreciated. RESPIRATORY: No accessory muscle use. Improving aeration, but still diminished in the bases. MUSCULOSKELETAL: No clubbing or cyanosis. 2+ bilateral lower extremity edema. NEUROLOGICAL: Awake and alert. Normal speech. Results 01/27/18 10:00 01/28/18 04:12 Cardiac Enzymes 01/27/18 01/27/18 01/27/18 Range/Units 10:00 10:00 15:50 AST 22 (15-37) U/L Troponin I 0.85 H* 1.77 H* D (0.02-0.05) ng/mL B-Natriuretic Peptide 1096 H (0-100) pg/mL Coagulation 01/27/18 01/27/18 Range/Units 10:00 10:00 PT 11.1 (9.8-11.6) sec APTT 21.7 L (24.3-30.1) sec B-Natriuretic Peptide 1096 H (0-100) pg/mL CBC 01/27/18 Range/Units 10:00 WBC 11.0 (4.0-11.0) th/mm3 RBC 3.99 L (4.00-5.30) mil/mm3 Hgb 12.9 (11.6-15.3) gm/dL Hct 38.9 (35.0-46.0) % Plt Count 160 (150-450) th/mm3 Neut # (Auto) 9.6 H (1.8-7.7) th/mm3 Lymph # (Auto) 0.8 L (1.0-4.8) th/mm3 [place] # (Auto) 0.6 (0.0-0.9) th/mm3 Eos # (Auto) 0.0 (0.0-0.4) th/mm3 Baso # (Auto) 0.0 (0.0-0.2) th/mm3 Comprehensive Metabolic Panel 01/27/18 01/28/18 Range/Units 10:00 04:12 Sodium 148 H 149 H (136-145) meq/L Potassium 3.0 L 4.0 D (3.5-5.1) meq/L Chloride 116 H 113 H (98-107) meq/L Carbon Dioxide 21.5 23.4 (21.0-32.0) meq/L BUN 19 H 20 H (7-18) mg/dL Creatinine 0.95 0.98 (0.50-1.00) mg/dL Calcium 8.3 L 8.2 L (8.5-10.1) mg/dL AST 22 (15-37) U/L ALT 19 (10-53) U/L Alkaline Phosphatase 57 (45-117) U/L Total Protein 6.5 (6.4-8.2) g/dL Albumin 3.1 L (3.4-5.0) g/dL Intake and Output 01/27/18 01/28/18 01/28/18 22:59 06:59 14:59 Intake Total 240 / 240 240 / 240 Output Total 1000 / 1000 1000 / 1000 Balance -760 / -760 -760 / -760 Intake: Oral 240 / 240 240 / 240 Output: Urine 1000 / 1000 1000 / 1000 Stool 0 / 0 0 / 0 Other: Weight 101 lb 6.602 oz - Imaging and Cardiology Imaging: Impressions Chest X-Ray 01/27/18 09:44 CONCLUSION: 1. Cardiomegaly. 2. Small-moderate bilateral pleural effusions. 3. Moderate pulmonary vascular congestion. 4. Degenerative changes and scoliosis of the thoracolumbar spine. 5. Compression deformity is involving the lower thoracic spine. Venous Doppler Study 01/27/18 09:44 CONCLUSION: 1. Negative for deep venous thrombosis Assessment and Plan - Plan 87-year-old female with no known past medical history who presented for acute onset of shortness of breath NSTEMI: No chest pain currently. Ischemic EKG changes. New-onset cardiomyopathy. Troponin has gone up to 1.7. Awaiting improvement of CHF symptoms prior to deciding +/-ischemic workup as patient currently appears to not be an ideal interventional candidate. 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 Appears ischemic with regional wall motion abnormalities on echo. Carvedilol 6.25 mg started, appears to be maximally tolerated dose with borderline BP and heart rate. Acute systolic congestive heart failure: Continue IV diuresis. Monitor I's and O's. Discussed Condition With: Patient, Dr. Persaud
--- NOTE | 2018-01-28 13:07 | P.PN ---
Subjective Interval history: Nursing denies any deterioration since last night. Patient herself says she has had a little chest pain and some shortness of breath. Says that she wants to live to be 89 to see her grandchildren grow up. However when I asked her if she is willing to undergo cardiac catheterization if this is warranted, she is replying that she does not know. also c/o she's "choking on water" Physical Exam Vital signs: Vital Signs 01/27/18 13:27 01/27/18 14:36 01/27/18 17:31 Temperature Pulse Rate 66 64 69 Respiratory Rate 18 16 18 Blood Pressure 140/72 121/72 Pulse Oximetry 94 L 92 L 95 01/27/18 20:00 01/27/18 20:56 01/27/18 21:00 Temperature 98 F Pulse Rate 61 60 Respiratory Rate 18 Blood Pressure 130/85 Pulse Oximetry 93 L 94 L 01/27/18 22:58 01/27/18 23:58 01/28/18 00:00 Temperature 97.8 F Pulse Rate 61 56 L 56 L Respiratory Rate 18 Blood Pressure 112/76 Pulse Oximetry 94 L 01/28/18 01:00 01/28/18 02:00 01/28/18 03:00 Temperature Pulse Rate 61 63 62 Respiratory Rate Blood Pressure Pulse Oximetry 01/28/18 03:50 01/28/18 04:00 01/28/18 05:00 Temperature 98.1 F Pulse Rate 61 59 L 60 Respiratory Rate 18 Blood Pressure 106/66 Pulse Oximetry 94 L 01/28/18 06:00 01/28/18 07:00 01/28/18 08:00 Temperature 97.5 F L Pulse Rate 63 88 90 Respiratory Rate 16 Blood Pressure 122/78 Pulse Oximetry 92 L 01/28/18 09:00 01/28/18 09:50 01/28/18 10:00 Temperature Pulse Rate 68 60 Respiratory Rate Blood Pressure Pulse Oximetry 92 L 01/28/18 12:00 Temperature 97.0 F L Pulse Rate 83 Respiratory Rate 18 Blood Pressure 113/72 Pulse Oximetry 95 Intake & Output 01/27/18 01/28/18 01/28/18 18:59 06:59 18:59 Intake Total 480 / 480 Output Total 1999 Balance -1520 / -1520 Weight 46 kg 46 kg Intake: Oral 480 / 480 Output: Urine 1999 Stool 0 / 0 Other: # Urine Diapers 4 Date of Last Bowel Movement 01/28/18 Narrative: Alert and oriented 3 with intact insight Clear lungs bilaterally, unlabored breathing Heart sounds regular rate rhythm Results - Labs CBC & Chem 7: 01/27/18 10:00 01/28/18 04:12 Laboratory Results - last 24 hr 01/27/18 01/28/18 15:50 04:12 Sodium 149 H Potassium 4.0 D Chloride 113 H Carbon Dioxide 23.4 Anion Gap 13 BUN 20 H Creatinine 0.98 Estimated GFR 54 L Random Glucose 97 Calcium 8.2 L Troponin I 1.77 H* D Assessment and Plan - Plan This is an 87-year-old female with a history of hypertension. She presents to the emergency department because of shortness of breath yesterday with chest pain, palpitations and dizziness. Chest x-ray interpreted by me with cardiomegaly and bilateral pleural effusion consistent with pulmonary edema. EKG tracing with no ST elevation. Troponin 0.85. BNP 1000 New onset systolic acute heart failure with hypoxia. -Patient will be admitted for further treatment. Continue diuresis with IV Lasix, CHF education, I/O and monitor weight. hypoxia resolved. EF 30 -35% w/ akinesis. NSTEMI. -aspirin, beta-delma and sublingual nitroglycerin. Cardiology recommended medical management with IV diuresis at this time before any further ischemic workup. Akinesis noted on echo. Hypokalemia. improved Hypernatremia - repeat labs in AM, possibly 2/2 dehydration/diuresis Abnormal urinalysis. No UTI symptoms. Follow-up urine culture Dysphagia: ST eval DVT prophylaxis with SCD and subcu heparin Discharge Planning: consulting palliative care to evaluate the patient at the latest on 01/30 for goals of care
--- NOTE | 2018-01-28 14:39 | ECG ---
Date Performed: 01/27/2018 Time Performed: 12:09:38 PTAGE: 87 years EKG: Sinus rhythm POSSIBLE LEFT ATRIAL ENLARGEMENT ST DEVIATION AND MODERATE T-WAVE ABNORMALITY, CONSIDER ANTERIOR ISC HEMIA ABNORMAL ECG Since the previous tracing, no significant change noted NO PREVIOUS TRACING DOCTOR: Radha Duran Interpretating Date/Time 01/28/2018 14:33:12
--- NOTE | 2018-01-28 14:39 | ECG ---
Date Performed: 01/27/2018 Time Performed: 16:15:47 PTAGE: 87 years EKG: Sinus rhythm POSSIBLE LEFT ATRIAL ENLARGEMENT ST DEVIATION AND MODERATE T-WAVE ABNORMALITY, CONSIDER ANTERIOR ISC HEMIA ABNORMAL ECG Since the PREVIOUS TRACING , no significant change noted PREVIOUS TRACIN01/27/2018 12.09 DOCTOR: Radha Duran Interpretating Date/Time 01/28/2018 14:33:33
--- NOTE | 2018-01-28 14:40 | ECG ---
Date Performed: 01/27/2018 Time Performed: 22:08:34 PTAGE: 87 years EKG: Sinus rhythm Prolonged QT interval Ant/septal and lateral ST-T changes may be due to myocardial ischemia Since th e previous tracing, no significant change noted Abnormal ECG PREVIOUS TRACING : 01/27/2018 16.15 DOCTOR: Radha Duran Interpretating Date/Time 01/28/2018 14:33:44
[2018-01-29 06:28] LABS: Calcium 7.9 mg/dL (8.5-10.1); Carbon Dioxide 28.3 meq/L (21.0-32.0); Potassium 4.1 meq/L (3.5-5.1)
[2018-01-29 07:03] LABS: Troponin I 1.37 ng/mL (0.02-0.05)
[2018-01-29] MEDS: Carvedilol 6.25 MG Tablet PO SCH (08:26)
[2018-01-29] MEDS: Heparin - SQ 10,000 UNITS/ML Vial SQ SCH ×2 (08:27→20:22)
--- NOTE | 2018-01-29 09:05 | P.PNCA ---
Subjective Interval history: Patient reports shortness of breath continues to improve and she is happy she is not on O2 anymore. However, she states her breathing is still not at baseline. She had some right chest wall discomfort that is reproducible to touch. She reports her legs are much less swollen. Medications and Allergies Active Medications: Active Medications Acetaminophen (Tylenol) 650 mg PO Q4H PRN PRN Reason: Temp > 100.4 Al Hydrox/Mg Hydrox/Simethicone (Mag-Al Plus Susp Liq) 30 ml PO Q6H PRN PRN Reason: DYSPEPSIA Al Hydroxide/Mg Hydroxide (Milk Of Magnesia Liq) 30 ml PO DAILY PRN PRN Reason: SEVERE CONSITIPATION Aspirin (Aspirin Chew) 81 mg PO DAILY [facility] Last Admin: 01/29/18 08:26 Dose: 81 mg Calcium Carbonate (Tums Chew) 1,000 mg CHEW TID PRN PRN Reason: DYSPEPSIA Carvedilol (Coreg) 3.125 mg PO BID [facility] Docusate Sodium (Colace) 100 mg PO BID PRN PRN Reason: MILD CONSTIPATION Furosemide (Lasix Inj) 40 mg IV.PUSH BID@0900,1800 [facility] Last Admin: 01/29/18 08:27 Dose: 40 mg Heparin Sodium (Porcine) (Heparin Inj) 5,000 units SQ Q12HR [facility] Last Admin: 01/29/18 08:27 Dose: 5,000 units Nitroglycerin (Nitrostat Sl) 0.4 mg SL Q5M PRN PRN Reason: CHEST PAIN Ondansetron HCl (Zofran Inj) 4 mg IV.PUSH Q6H PRN PRN Reason: NAUSEA Potassium Chloride (K-Dur) 20 meq PO BID [facility] Last Admin: 01/29/18 08:26 Dose: 20 meq Senna/Docusate Sodium (Lourdes-Colace) 1 tab PO BID PRN PRN Reason: MODERATE - SEVERE CONSTIPATION Sodium Chloride (Ns Flush) 2 ml IV.FLUSH BID [facility] Last Admin: 01/29/18 08:27 Dose: 2 ml Sodium Chloride (Ns Flush) 2 ml IV.FLUSH UNSCH PRN PRN Reason: FLUSH AFTER USING IV ACCESS Allergies Allergy/AdvReac Type Severity Reaction Status Date / Time No Known Allergies Allergy Unverified 01/27/18 09:20 Home Medications Medication Instructions Recorded Confirmed Type No Known Home Medications 01/27/18 01/27/18 History Physical Exam Vital signs: Vital Signs 01/28/18 09:50 01/28/18 10:00 01/28/18 11:00 Temperature Pulse Rate 60 64 Respiratory Rate Blood Pressure Pulse Oximetry 92 L 01/28/18 12:00 01/28/18 13:00 01/28/18 14:00 Temperature 97.0 F L Pulse Rate 78 76 64 Respiratory Rate 18 Blood Pressure 113/72 Pulse Oximetry 95 01/28/18 15:00 01/28/18 15:39 01/28/18 16:00 Temperature 97.9 F Pulse Rate 69 59 L 52 L Respiratory Rate 18 18 Blood Pressure 101/62 Pulse Oximetry 100 01/28/18 17:00 01/28/18 18:00 01/28/18 19:00 Temperature Pulse Rate 68 62 77 Respiratory Rate Blood Pressure Pulse Oximetry 01/28/18 20:00 01/28/18 20:57 01/28/18 21:00 Temperature 98.1 F Pulse Rate 85 67 Respiratory Rate 20 Blood Pressure 96/58 L Pulse Oximetry 95 93 L 01/28/18 22:00 01/28/18 23:00 01/28/18 23:40 Temperature 97.9 F Pulse Rate 62 58 L 58 L Respiratory Rate 18 Blood Pressure 107/64 Pulse Oximetry 96 01/29/18 00:00 01/29/18 01:00 01/29/18 02:00 Temperature Pulse Rate 58 L 56 L 57 L Respiratory Rate Blood Pressure Pulse Oximetry 01/29/18 03:00 01/29/18 03:53 01/29/18 03:57 Temperature 98.3 F Pulse Rate 64 58 L 76 Respiratory Rate 18 Blood Pressure 107/64 Pulse Oximetry 96 01/29/18 05:00 01/29/18 06:00 01/29/18 07:00 Temperature Pulse Rate 66 48 L 54 L Respiratory Rate Blood Pressure Pulse Oximetry Intake & Output 01/28/18 01/29/18 01/29/18 18:59 06:59 18:59 Intake Total 740 / 740 480 / 480 Output Total 400 / 400 750 / 750 Balance 340 / 340 -270 / -270 Weight 101 lb 6.602 oz Intake: Oral 740 / 740 480 / 480 Output: Urine 400 / 400 750 / 750 Stool 0 / 0 Other: Date of Last Bowel Movement 01/28/18 01/28/18 # Bowel Movements 1 Narrative: GENERAL: Well-developed fair-nourished. Thin, frail elderly female. In no acute distress. NECK: No carotid bruits. No JVD. CARDIOVASCULAR: Regular rate and rhythm. No murmur appreciated. RESPIRATORY: No accessory muscle use. Diminished breath sounds in the bases. MUSCULOSKELETAL: No clubbing or cyanosis. 1+ lower extremity edema. NEUROLOGICAL: Awake and alert. Normal speech. Results 01/27/18 10:00 01/29/18 05:29 Cardiac Enzymes 01/27/18 01/27/18 01/27/18 Range/Units 10:00 10:00 15:50 AST 22 (15-37) U/L Troponin I 0.85 H* 1.77 H* D (0.02-0.05) ng/mL B-Natriuretic Peptide 1096 H (0-100) pg/mL 01/29/18 Range/Units 05:29 AST (15-37) U/L Troponin I 1.37 H* D (0.02-0.05) ng/mL B-Natriuretic Peptide (0-100) pg/mL Coagulation 01/27/18 01/27/18 Range/Units 10:00 10:00 PT 11.1 (9.8-11.6) sec APTT 21.7 L (24.3-30.1) sec B-Natriuretic Peptide 1096 H (0-100) pg/mL CBC 01/27/18 Range/Units 10:00 WBC 11.0 (4.0-11.0) th/mm3 RBC 3.99 L (4.00-5.30) mil/mm3 Hgb 12.9 (11.6-15.3) gm/dL Hct 38.9 (35.0-46.0) % Plt Count 160 (150-450) th/mm3 Neut # (Auto) 9.6 H (1.8-7.7) th/mm3 Lymph # (Auto) 0.8 L (1.0-4.8) th/mm3 [place] # (Auto) 0.6 (0.0-0.9) th/mm3 Eos # (Auto) 0.0 (0.0-0.4) th/mm3 Baso # (Auto) 0.0 (0.0-0.2) th/mm3 Comprehensive Metabolic Panel 01/27/18 01/28/18 01/29/18 Range/Units 10:00 04:12 05:29 Sodium 148 H 149 H 145 (136-145) meq/L Potassium 3.0 L 4.0 D 4.1 (3.5-5.1) meq/L Chloride 116 H 113 H 108 H (98-107) meq/L Carbon Dioxide 21.5 23.4 28.3 (21.0-32.0) meq/L BUN 19 H 20 H 32 H (7-18) mg/dL Creatinine 0.95 0.98 1.26 H (0.50-1.00) mg/dL Calcium 8.3 L 8.2 L 7.9 L (8.5-10.1) mg/dL AST 22 (15-37) U/L ALT 19 (10-53) U/L Alkaline Phosphatase 57 (45-117) U/L Total Protein 6.5 (6.4-8.2) g/dL Albumin 3.1 L (3.4-5.0) g/dL Intake and Output 01/28/18 01/29/18 01/29/18 22:59 06:59 14:59 Intake Total 980 / 980 240 / 240 Output Total 400 / 400 750 / 750 Balance 580 / 580 -510 / -510 Intake: Oral 980 / 980 240 / 240 Output: Urine 400 / 400 750 / 750 Stool 0 / 0 Other: Date of Last Bowel Movement 01/28/18 01/28/18 # Bowel Movements 1 Weight 101 lb 6.602 oz - Imaging and Cardiology Imaging: Impressions Chest X-Ray 01/27/18 09:44 CONCLUSION: 1. Cardiomegaly. 2. Small-moderate bilateral pleural effusions. 3. Moderate pulmonary vascular congestion. 4. Degenerative changes and scoliosis of the thoracolumbar spine. 5. Compression deformity is involving the lower thoracic spine. Venous Doppler Study 01/27/18 09:44 CONCLUSION: 1. Negative for deep venous thrombosis Assessment and Plan - Plan 87-year-old female with no known past medical history who presented for acute onset of shortness of breath NSTEMI: No chest pain currently. Ischemic EKG changes. New-onset cardiomyopathy. Troponin peaked at 1.77, now decreasing to 1.3. Awaiting improvement of CHF symptoms prior to deciding +/-ischemic workup as patient currently appears to not be an ideal interventional candidate. 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 Appears ischemic with regional wall motion abnormalities on echo. On carvedilol 3.125 mg, appears to be maximally tolerated dose with borderline BP and heart rate. Acute systolic congestive heart failure: Improving. Creatinine bumped, will decrease IV Lasix. Still short of breath, will repeat chest x-ray, may need thoracentesis if still significant pleural effusions, will defer to hospitalist. Monitor I's and O's. Discussed Condition With: Patient, RN, Dr. Persaud
--- NOTE | 2018-01-29 09:39 | XR ---
EXAM DATE: 01/29/2018 9:34 AM EDT AGE/SEX: 87 years / Female INDICATIONS: Short of breath CLINICAL DATA: This is the patient's subsequent encounter. Patient reports that signs and symptoms h ave been present for 3 days and indicates a pain score of 0/10. MEDICAL/SURGICAL HISTORY: . Pleural effusion None. COMPARISON: [facility], CHEST 1V SINGLE AP, 01/27/2018. . FINDINGS: Interval improvement with less interstitial edema. The heart remains enlarged. Small bilateral pleura l effusions persist. No pneumothorax. The portion of the bony skeleton visualized is unremarkable. CONCLUSION: Interval improvement. Small bilateral pleural effusions remain. Electronically signed by: Varun Sharma MD 01/29/2018 9:38 AM EDT
--- NOTE | 2018-01-29 14:32 | P.PN ---
Subjective Interval history: Nursing denies deterioration since last night. Patient herself has a hard time vocalizing she is feeling better today. Daughter at bedside today. Patient and daughter confirm that they have not had a discussion about advanced directives and heroic measures. Later daughter mentions that she doesn't want procedures done. Pt has trouble understanding the concept of a thoracentesis whereas the daughter seems to understand. Pt says she wants to live to 89 yrs old but also says she doesn't want us to "put her in a box" to which the daughter says she's referring to her in the sense of a coffin. Daughter tells me to contact her son-in-law for further explanation. I spoke with (grand) son-in-law who does not accept the reasoning behind our understanding of the pt's condition. Upon speaking with him, he says Nunu has a 2.5 * rating and says he would rather not have the patient stay at this hospital. He states that "getting better" and she'll be taken care of at home. He says she will be mainly chair-bound at home, minimal exertion. After explaining to the son in law that she has pleural effusions, worsening kidney function, and a poor cardiac pump; he attributes her effusions to her "choking on water" and he states "natural remedies" would be appropriate for the patient instead of cardiac meds. He thinks the solution to her worsening renal function is aggressive rehydration. However, despite me explaining she has poor systolic function he does not embrace the explanation as the root cause. He thanks me for the phone call. I then speak to the daughter again and inform her that her son-in-law has a poor understanding of the patient's medical condition and that the pt is not necessarily "doing better." I explain to her in detail the discrepancies in his understanding and I emphasize to her that as the surrogate decision maker she needs to understand accurate medical information. Daughter says she understands what I'm saying and then only replies by saying "when can I take my mother home? " She then vocalizes a wish to make the patient a DNR, saying she's had 7 surgeries in the past and "doesn't want to put her through that again." Physical Exam Vital signs: Vital Signs 01/28/18 15:00 01/28/18 15:39 01/28/18 16:00 Temperature 97.9 F Pulse Rate 69 59 L 52 L Respiratory Rate 18 18 Blood Pressure 101/62 Pulse Oximetry 100 01/28/18 17:00 01/28/18 18:00 01/28/18 19:00 Temperature Pulse Rate 68 62 77 Respiratory Rate Blood Pressure Pulse Oximetry 01/28/18 20:00 01/28/18 20:57 01/28/18 21:00 Temperature 98.1 F Pulse Rate 85 67 Respiratory Rate 20 Blood Pressure 96/58 L Pulse Oximetry 95 93 L 01/28/18 22:00 01/28/18 23:00 01/28/18 23:40 Temperature 97.9 F Pulse Rate 62 58 L 58 L Respiratory Rate 18 Blood Pressure 107/64 Pulse Oximetry 96 01/29/18 00:00 01/29/18 01:00 01/29/18 02:00 Temperature Pulse Rate 58 L 56 L 57 L Respiratory Rate Blood Pressure Pulse Oximetry 01/29/18 03:00 01/29/18 03:53 01/29/18 03:57 Temperature 98.3 F Pulse Rate 64 58 L 76 Respiratory Rate 18 Blood Pressure 107/64 Pulse Oximetry 96 01/29/18 05:00 01/29/18 06:00 01/29/18 07:00 Temperature Pulse Rate 66 48 L 54 L Respiratory Rate Blood Pressure Pulse Oximetry 01/29/18 08:00 01/29/18 09:12 01/29/18 12:00 Temperature 97.4 F L 98.1 F Pulse Rate 78 59 L Respiratory Rate 18 18 Blood Pressure 114/71 94/52 L Pulse Oximetry 94 L 94 L 96 Intake & Output 01/28/18 01/29/18 01/29/18 18:59 06:59 18:59 Intake Total 740 / 740 480 / 480 Output Total 400 / 400 750 / 750 Balance 340 / 340 -270 / -270 Weight 46 kg Intake: Oral 740 / 740 480 / 480 Output: Urine 400 / 400 750 / 750 Stool 0 / 0 Other: Date of Last Bowel Movement 01/28/18 01/28/18 01/29/18 # Bowel Movements 1 Narrative: Clear lungs bilaterally, unlabored breathing Awake and alert, interactive, good eye contact, difficult to decipher speech which is otherwise not slurred, no facial droop Results - Labs CBC & Chem 7: 02/01/18 09:18 02/03/18 05:38 Laboratory Results - last 24 hr 01/27/18 01/29/18 10:00 05:29 Sodium 145 Potassium 4.1 Chloride 108 H Carbon Dioxide 28.3 Anion Gap 9 BUN 32 H Creatinine 1.26 H Estimated GFR 40 L Random Glucose 93 Calcium 7.9 L Troponin I 1.37 H* D Urine Color Yellow Urine Clarity Slightly cloudy Urine pH 6.0 Ur Specific [place] Greater/equal 1.030 Urine Protein Negative Urine Glucose (UA) Negative Urine Ketones Negative Urine Occult Blood Negative Urine Nitrate Positive H Urine Bilirubin Negative Urine Urobilinogen 1.0 Ur Leukocyte Esterase Negative Urine RBC 0-3 Urine WBC 0-5 Ur Squamous Epith Cells 0-5 Urine Bacteria Many H Micro UA Comment Cath-culture ind Ur Microscopic Review Microscopic reviewed Urine Culture Comments Cath-cult indicated Microbiology 01/27/18 10:00 Catheterized Urine Urine Culture - Preliminary gram negative rods - Imaging Impressions Chest X-Ray 01/29/18 00:00 CONCLUSION: Interval improvement. Small bilateral pleural effusions remain. Assessment and Plan - Plan This is an 87-year-old female with a history of hypertension. She presents to the emergency department because of shortness of breath yesterday with chest pain, palpitations and dizziness. Chest x-ray interpreted by me with cardiomegaly and bilateral pleural effusion consistent with pulmonary edema. EKG tracing with no ST elevation. Troponins peaking at 1.77 New onset systolic acute heart failure with hypoxia. -Continue diuresis with IV Lasix, CHF education, I/O and monitor weight. hypoxia resolved. EF 30-35% w/ akinesis. NSTEMI. -aspirin, beta-delma and sublingual nitroglycerin. Cardiology recommended medical management with IV diuresis at this time before any further ischemic workup. Akinesis noted on echo. Hypokalemia. improved Hypernatremia -Resolved Gram negative bacteria -Starting Rocephin, awaiting speciation Dysphagia: ST eval recommending pureed diet. DVT prophylaxis with SCD and subcu heparin. Addendum: After thoroughly trying to engage the patient in understanding what heart catheterization is what thoracentesis is, I concluded that she does not have the capability of understanding procedures and thus giving informed consent. Daughter at the bedside. With discussion with family they are opting to defer cardiac catheterization and thoracentesis at this time. D/w cardiology details of conversation. Discharge Planning: Patient still is not clear about goals of care despite attempts with clarification with daughter in the room today. Awaiting palliative care consultation for tomorrow.
[2018-01-29 16:17] LABS: INR 1.1 Ratio; Prothrombin Time 10.7 sec (9.8-11.6)
[2018-01-29] MEDS: Acetaminophen 325 MG Tablet PO PRN (16:53)
[2018-01-30 08:35] LABS: Calcium 7.8 mg/dL (8.5-10.1); Carbon Dioxide 25.8 meq/L (21.0-32.0)
--- NOTE | 2018-01-30 08:54 | P.PNCA ---
Subjective Interval history: Patient seen with family at bedside. Patient reports breathing continues to improve. Patient and family report goals are symptomatic improvement so that she can go home. They are apprehensive about having thoracentesis done, discussed with patient and family regarding primary team and our recommendations for thoracentesis to improve dyspnea. No chest pain. Medications and Allergies Allergies Allergy/AdvReac Type Severity Reaction Status Date / Time No Known Allergies Allergy Unverified 01/27/18 09:20 Home Medications Medication Instructions Recorded Confirmed Type No Known Home Medications 01/27/18 01/27/18 History Active Medications: Active Medications Acetaminophen (Tylenol) 650 mg PO Q4H PRN PRN Reason: Temp > 100.4 Last Admin: 01/29/18 16:53 Dose: 650 mg Al Hydrox/Mg Hydrox/Simethicone (Mag-Al Plus Susp Liq) 30 ml PO Q6H PRN PRN Reason: DYSPEPSIA Al Hydroxide/Mg Hydroxide (Milk Of Magnesia Liq) 30 ml PO DAILY PRN PRN Reason: SEVERE CONSITIPATION Aspirin (Aspirin Chew) 81 mg PO DAILY [facility] Last Admin: 01/29/18 08:26 Dose: 81 mg Calcium Carbonate (Tums Chew) 1,000 mg CHEW TID PRN PRN Reason: DYSPEPSIA Carvedilol (Coreg) 3.125 mg PO BID [facility] Last Admin: 01/29/18 20:22 Dose: Not Given Docusate Sodium (Colace) 100 mg PO BID PRN PRN Reason: MILD CONSTIPATION Furosemide (Lasix Inj) 20 mg IV.PUSH BID@0900,1800 [facility] Last Admin: 01/29/18 10:07 Dose: Not Given Heparin Sodium (Porcine) (Heparin Inj) 5,000 units SQ Q12HR [facility] Last Admin: 01/29/18 20:22 Dose: 5,000 units Ceftriaxone Sodium 1,000 mg/ (Sodium Chloride) 100 mls @ 200 mls/hr IV.SIG Q24H [facility] Last Infusion: 01/29/18 17:52 Dose: Infused Nitroglycerin (Nitrostat Sl) 0.4 mg SL Q5M PRN PRN Reason: CHEST PAIN Ondansetron HCl (Zofran Inj) 4 mg IV.PUSH Q6H PRN PRN Reason: NAUSEA Potassium Chloride (K-Dur) 20 meq PO BID [facility] Last Admin: 01/29/18 20:21 Dose: 20 meq Senna/Docusate Sodium (Lourdes-Colace) 1 tab PO BID PRN PRN Reason: MODERATE - SEVERE CONSTIPATION Sodium Chloride (Ns Flush) 2 ml IV.FLUSH BID [facility] Last Admin: 01/29/18 20:23 Dose: 2 ml Sodium Chloride (Ns Flush) 2 ml IV.FLUSH UNSCH PRN PRN Reason: FLUSH AFTER USING IV ACCESS Physical Exam Vital signs: Vital Signs 01/29/18 09:00 01/29/18 09:12 01/29/18 10:00 Temperature Pulse Rate 70 70 Respiratory Rate Blood Pressure Pulse Oximetry 94 L 01/29/18 12:00 01/29/18 13:00 01/29/18 14:00 Temperature 98.1 F Pulse Rate 50 L 62 54 L Respiratory Rate 18 Blood Pressure 94/52 L Pulse Oximetry 96 01/29/18 16:00 01/29/18 17:00 01/29/18 17:51 Temperature 98.0 F Pulse Rate 52 L 54 L Respiratory Rate 18 18 Blood Pressure 91/50 L Pulse Oximetry 96 01/29/18 18:00 01/29/18 19:00 01/29/18 20:00 Temperature 97.4 F L Pulse Rate 58 L 58 L 55 L Respiratory Rate 18 Blood Pressure 93/51 L Pulse Oximetry 94 L 01/29/18 20:51 01/29/18 21:00 01/29/18 22:00 Temperature Pulse Rate 57 L 56 L Respiratory Rate Blood Pressure Pulse Oximetry 96 01/29/18 23:00 01/29/18 23:01 01/30/18 00:00 Temperature 97.9 F 97.9 F Pulse Rate 58 L 55 L 55 L Respiratory Rate 18 18 Blood Pressure 110/70 Pulse Oximetry 95 95 01/30/18 01:00 01/30/18 02:00 01/30/18 03:00 Temperature Pulse Rate 58 L 57 L 56 L Respiratory Rate Blood Pressure Pulse Oximetry 01/30/18 04:00 01/30/18 05:00 01/30/18 06:00 Temperature 98.0 F Pulse Rate 54 L 57 L 59 L Respiratory Rate 18 Blood Pressure 106/67 Pulse Oximetry 96 Intake & Output 01/29/18 01/30/18 01/30/18 18:59 06:59 18:59 Intake Total 740 / 740 720 / 720 Output Total 800 / 800 Balance 740 / 740 -80 / -80 Weight 101 lb 6.602 oz Intake: IV 100 / 100 Rocephin Inj 1,000 MG In NS Inj 100 / 100 100 ML @ 200 mls/hr IV.SIG Q24H [facility] Rx#:[id number] Oral 640 / 640 720 / 720 Output: Urine 800 / 800 Stool 0 / 0 Other: # Voids 4 Date of Last Bowel Movement 01/29/18 Narrative: GENERAL: Well-developed fair-nourished. Thin, frail elderly female. In no acute distress. NECK: No carotid bruits. No JVD. CARDIOVASCULAR: Regular rate and rhythm. No murmur appreciated. RESPIRATORY: No accessory muscle use. Diminished breath sounds in the bases. MUSCULOSKELETAL: No clubbing or cyanosis. No edema. NEUROLOGICAL: Awake and alert. Normal speech. Results 01/27/18 10:00 01/30/18 07:55 Cardiac Enzymes 01/29/18 Range/Units 05:29 Troponin I 1.37 H* D (0.02-0.05) ng/mL Coagulation 01/29/18 Range/Units 16:01 PT 10.7 (9.8-11.6) sec Comprehensive Metabolic Panel 01/29/18 01/30/18 Range/Units 05:29 07:55 Sodium 145 144 (136-145) meq/L Potassium 4.1 4.0 (3.5-5.1) meq/L Chloride 108 H 112 H (98-107) meq/L Carbon Dioxide 28.3 25.8 (21.0-32.0) meq/L BUN 32 H 33 H (7-18) mg/dL Creatinine 1.26 H 1.05 H (0.50-1.00) mg/dL Calcium 7.9 L 7.8 L (8.5-10.1) mg/dL Intake and Output 01/29/18 01/30/18 01/30/18 22:59 06:59 14:59 Intake Total 980 / 980 480 / 480 Output Total 800 / 800 Balance 980 / 980 -320 / -320 Intake: IV 100 / 100 Rocephin Inj 1,000 MG In NS Inj 100 / 100 100 ML @ 200 mls/hr IV.SIG Q24H [facility] Rx#:[id number] Oral 880 / 880 480 / 480 Output: Urine 800 / 800 Stool 0 / 0 Other: # Voids 4 Date of Last Bowel Movement 01/29/18 Weight 101 lb 6.602 oz - Imaging and Cardiology Imaging: Impressions Chest X-Ray 01/29/18 00:00 CONCLUSION: Interval improvement. Small bilateral pleural effusions remain. Assessment and Plan - Plan 87-year-old female with no known past medical history who presented for acute onset of shortness of breath NSTEMI: No chest pain currently. Ischemic EKG changes. New-onset cardiomyopathy. Troponin peaked at 1.77, now decreased to 1.3. Patient and family goals are symptom management and her apprehensive about any invasive cardiac procedures including LHC or CABG if indicated and patient is quite frail as well. Likely medical management. 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 Appears ischemic with regional wall motion abnormalities on echo. On carvedilol 3.125 mg, appears to be maximally tolerated dose with borderline BP and heart rate. Acute systolic congestive heart failure: Improving. Creatinine improved today, patient's goal is symptomatic improvement, will increase Lasix to 40 mg twice daily IV. Chest x-ray 01/29 with improving edema but still with moderate bilateral pleural effusions, agree with recommendation for thoracentesis. Monitor I's and O's, renal function, and electrolytes. Discussed Condition With: Patient seen and examined with Dr. Mayorga, Hospitalist - Attending Attestation --------- Patient seen and examined. Agree with above. Strongly recommended to patient and her daughter at bedside to consider thoracentesis today Increase Furosemide back to 40mg bid with metolazone due to now stable Cr
--- NOTE | 2018-01-30 08:57 | US ---
EXAM DATE: 01/30/2018 8:27 AM EDT AGE/SEX: 87 years / Female INDICATIONS: Left pleural effusion. CLINICAL DATA: This is the patient's initial encounter. Patient reports that signs and symptoms have been present for 2 days and indicates a pain score of 3/10. MEDICAL/SURGICAL HISTORY: Hypertension. . Hip surgery. COMPARISON: . MEASUREMENTS: Skin To Parietal Pleura:__. cm Skin To Max Safe Depth:__. cm Estimated Fluid Volume:__308 cc Fluid Composition:__simple FINDINGS: There is a small to moderate size simple appearing pleural effusion. CONCLUSION: 1. There is a small to moderate size pleural effusion. However, patient is not consentable and famil y has declined thoracentesis. Electronically signed by: Thong Khan MD 01/30/2018 8:56 AM EDT
[2018-01-30] MEDS: Heparin - SQ 10,000 UNITS/ML Vial SQ SCH ×2 (09:20→22:16)
--- NOTE | 2018-01-30 12:13 | P.CONPAL ---
Consult Service: Palliative Care Requesting Physician: Zach Palma Reason for Consult: a. To assist with evaluation and management of symptoms including: pain, dyspnea b. To assist medical decision maker(s) with: better understanding of current medical conditions; weighing benefits/burdens of medical treatment options; making medical treatment decisions. Primary Care Provider: No Primary Care Physician History of Present Illness History of Present Illness: This is an 87 y/o female with hx HTN who presented to ER 01/27 for shortness of breath she developed same morning while going to the bathroom. She has nebulizers and solu-medrol and o2 en route with EMS. She recently broke her left hip. Pt had elevated troponin 0.85. Echo 01/27 revealed severely reduced left ventricular systolic function with EF 30-35%; anterior, anterolateral, apical, inferior apical akinesis; right sided pleural effusion, mild to moderate mitral valve regurg. CXR showed cardiomegaly, bilateral pleural effusions, pulmonary vascular congestion, scoliosis, compression deformity lower thoracic spine. EKG 01/27 indicated poss anterior ischemia and subsequent EKGs show little change. Cardiology recommending medical mgmt and diuresis prior to further ischemic work up. Cardiology also recommended thoracentesis but family declined. She reported some difficulty swallowing water and after speech eval was changed to [facility] soft diet with nectar thick liquids. On my eval pt is resting in bed, daughter Dominique, nurse physician internist at bedside. Pt denies pain, SOB. Does not appear to be in any distress. She is oriented to self, "hospital," and the year. She selectively answers questions and when she does answer, answers appropriately. Daughter frequently interjects and speaks for pt, information provided is inconsistent. Per RN pt converses more readily when Dominique not present, has been oriented and appropriate. Limited hx obtained d/t pt being reluctant historian and daughter inconsistent historian. Function/Cognitive Trajectory: Difficult to determine. Initially pt's daughter Dominique says pt lives with a granddaughter, Dominique's daughter, and is taken care of, ie assistance eating, going to bathroom. Then she says pt was completely independent with ADLs and ' feeds herself' and 'takers her shower every morning' but not able to balance a checkbook. Review of Systems other (ltd ROS d/t pt selectively answering questions) Constitutional: Reports weakness Eyes: Denies blind spots Ears, Nose, Mouth, and Throat: Denies abnormal hearing Cardiovascular: Reports chest pain with activity Respiratory: Denies shortness of breath, Denies wheezing Gastrointestinal: Denies abdominal pain, Denies vomiting Musculoskeletal: Reports decreased muscle mass Neurologic: Denies headache(s) PMF - History History Provided By: Patient, Family Member (Daughter Dominique denies PMH), Medical Record - Medical History Medical History: Medical History (Last Reviewed 01/30/18 @ 08:44 by Gianna Castañeda, FISH ROD MAKER) Patient denies medical problems (Acute) HTN (hypertension) - Surgical History Surgical History: Surgical History (Last Updated 01/27/18 @ 12:52 by Luis Hutchinson MD) No history of previous surgery (Acute) History of hip surgery - Family History Family History: Family History (Last Updated 01/27/18 @ 12:52 by Luis Hutchinson MD) Mother CVA (cerebral vascular accident) - Tobacco History Second Hand Smoke Exposure: No Smoking Status: Never smoker - Alcohol History How Often Do You Have a Drink Containing Alcohol: Never - Substance Use History Substance History: No History of Abuse - Travel History Recent Travel [facility] the [facility] Within the Last 8 Weeks: No Recent Travel Out of the Country Within the Last 8 Weeks: No - Immunization History Tetanus Immunization: Unsure Hx Influenza Vaccine This Season: No Medications and Allergies Active Medications: Active Medications Acetaminophen (Tylenol) 650 mg PO Q4H PRN PRN Reason: Temp > 100.4 Last Admin: 01/29/18 16:53 Dose: 650 mg Al Hydrox/Mg Hydrox/Simethicone (Mag-Al Plus Susp Liq) 30 ml PO Q6H PRN PRN Reason: DYSPEPSIA Al Hydroxide/Mg Hydroxide (Milk Of Magnesia Liq) 30 ml PO DAILY PRN PRN Reason: SEVERE CONSITIPATION Aspirin (Aspirin Chew) 81 mg PO DAILY [facility] Last Admin: 01/30/18 09:19 Dose: 81 mg Calcium Carbonate (Tums Chew) 1,000 mg CHEW TID PRN PRN Reason: DYSPEPSIA Carvedilol (Coreg) 3.125 mg PO BID [facility] Last Admin: 01/30/18 09:20 Dose: Not Given Docusate Sodium (Colace) 100 mg PO BID PRN PRN Reason: MILD CONSTIPATION Furosemide (Lasix Inj) 40 mg IV.PUSH BID@0900,1800 [facility] Last Admin: 01/30/18 09:20 Dose: 40 mg Heparin Sodium (Porcine) (Heparin Inj) 5,000 units SQ Q12HR [facility] Last Admin: 01/30/18 09:20 Dose: 5,000 units Ceftriaxone Sodium 1,000 mg/ (Sodium Chloride) 100 mls @ 200 mls/hr IV.SIG Q24H [facility] Last Infusion: 01/29/18 17:52 Dose: Infused Nitroglycerin (Nitrostat Sl) 0.4 mg SL Q5M PRN PRN Reason: CHEST PAIN Ondansetron HCl (Zofran Inj) 4 mg IV.PUSH Q6H PRN PRN Reason: NAUSEA Potassium Chloride (K-Dur) 20 meq PO BID [facility] Last Admin: 01/30/18 09:19 Dose: 20 meq Senna/Docusate Sodium ([place]-Colace) 1 tab PO BID PRN PRN Reason: MODERATE - SEVERE CONSTIPATION Sodium Chloride (Ns Flush) 2 ml IV.FLUSH BID [facility] Last Admin: 01/30/18 09:21 Dose: 2 ml Sodium Chloride (Ns Flush) 2 ml IV.FLUSH UNSCH PRN PRN Reason: FLUSH AFTER USING IV ACCESS Allergies Allergy/AdvReac Type Severity Reaction Status Date / Time No Known Allergies Allergy Unverified 01/27/18 09:20 Home Medications Medication Instructions Recorded Confirmed Type No Known Home Medications 01/27/1818 History Advance Directives Living Will: No Healthcare Surrogate: No Power of Stencil Cutter: No Family/friends goals: Unable to fully assess pt's capacity d/t rosaura Fox's frequent interjections. Rosaura Fox says she is the legal decision maker but is unable to provide documentation. Per [place] statutes proxy decision making falls to majority of patient's 5 children. Unable to obtain their contact information during this evaluation, will try again and request accurints meanwhile. Physical Exam Vital Signs: Vital Signs - 24 hr 01/29/18 12:00 01/29/18 13:00 01/29/18 14:00 Temperature 98.1 F Pulse Rate 50 L 62 54 L Respiratory Rate 18 Blood Pressure 94/52 L Pulse Oximetry 96 01/29/18 16:00 01/29/18 17:00 01/29/18 17:51 Temperature 98.0 F Pulse Rate 52 L 54 L Respiratory Rate 18 18 Blood Pressure 91/50 L Pulse Oximetry 96 01/29/18 18:00 01/29/18 19:00 01/29/18 20:00 Temperature 97.4 F L Pulse Rate 58 L 58 L 55 L Respiratory Rate 18 Blood Pressure 93/51 L Pulse Oximetry 94 L 01/29/18 20:51 01/29/18 21:00 01/29/18 22:00 Temperature Pulse Rate 57 L 56 L Respiratory Rate Blood Pressure Pulse Oximetry 96 01/29/18 23:00 01/29/18 23:01 01/30/18 00:00 Temperature 97.9 F 97.9 F Pulse Rate 58 L 55 L 55 L Respiratory Rate 18 18 Blood Pressure 110/70 Pulse Oximetry 95 95 01/30/18 01:00 01/30/18 02:00 01/30/18 03:00 Temperature Pulse Rate 58 L 57 L 56 L Respiratory Rate Blood Pressure Pulse Oximetry 01/30/18 04:00 01/30/18 05:00 01/30/18 06:00 Temperature 98.0 F Pulse Rate 54 L 57 L 59 L Respiratory Rate 18 Blood Pressure 106/67 Pulse Oximetry 96 01/30/18 08:00 01/30/18 09:00 01/30/18 10:57 Temperature 97.4 F L Pulse Rate 54 L 68 Respiratory Rate 18 Blood Pressure 107/56 L Pulse Oximetry 94 L 95 I&O: Intake & Output 01/28/18 01/29/18 01/30/18 01/31/18 06:59 06:59 06:59 06:59 Intake Total 480 / 480 1220 / 1220 1460 / 1460 Output Total 1999 1150 / 1150 800 / 800 Balance -1520 / -1520 70 / 70 660 / 660 Weight 46 kg 46 kg 46 kg Physical Exam: CONSTITUTIONAL/GENERAL: frail appearing woman SKIN: No jaundice, rashes, or lesions. Ecchymoses on upper extremities. No wounds seen anteriorly. Skin temperature appropriate. Not diaphoretic. HEAD: Atraumatic. Normocephalic. EYES: PERRL. Extraocular motions intact. No scleral icterus. No injection or drainage. Fundi not examined. ENT: Hearing grossly normal. Nose without bleeding or purulent drainage. edentulous NECK: Trachea midline. Supple, nontender. CARDIOVASCULAR: RRR without murmurs, gallops, or rubs. No JVD. Peripheral pulses symmetric. RESPIRATORY/CHEST: Symmetric, unlabored respirations. Clear to auscultation. Diminished. Breath sounds equal bilaterally. No wheezes, rales, or rhonchi. GASTROINTESTINAL: Abdomen soft, non-tender, nondistended. No hepato-splenomegaly , or palpable masses. No guarding. Bowel sounds present. GENITOURINARY: Without palpable bladder distension. Smith catheter in place. MUSCULOSKELETAL: Extremities without clubbing, cyanosis, or edema. No joint tenderness or effusion noted. No calf tenderness. No mottling or clubbing. LYMPHATICS: No palpable cervical or supraclavicular adenopathy. NEUROLOGICAL: Awake and alert. Oriented x 3. selectively answers. Motor and sensory grossly within normal limits. Follows commands. Cognitively sharp. Moves all extremities. PSYCHIATRIC: No obvious anxiety/depression. no apparent hallucinations or other psychotic thought process. Diagnostic Tests Laboratory: Laboratory Results - last 72 hr 01/27/18 01/27/18 01/28/18 10:00 15:50 04:12 PT INR Sodium 149 H Potassium 4.0 D Chloride 113 H Carbon Dioxide 23.4 Anion Gap 13 BUN 20 H Creatinine 0.98 Estimated GFR 54 L Random Glucose 97 Calcium 8.2 L Troponin I 1.77 H* D Urine Color Yellow Urine Clarity Slightly cloudy Urine pH 6.0 Ur Specific [place] Greater/equal 1.030 Urine Protein Negative Urine Glucose (UA) Negative Urine Ketones Negative Urine Occult Blood Negative Urine Nitrate Positive H Urine Bilirubin Negative Urine Urobilinogen 1.0 Ur Leukocyte Esterase Negative Urine RBC 0-3 Urine WBC 0-5 Ur Squamous Epith Cells 0-5 Urine Bacteria Many H Micro UA Comment Cath-culture ind Ur Microscopic Review Microscopic reviewed Urine Culture Comments Cath-cult indicated 01/29/18 01/29/18 01/30/18 05:29 16:01 07:55 PT 10.7 INR 1.1 Sodium 145 144 Potassium 4.1 4.0 Chloride 108 H 112 H Carbon Dioxide 28.3 25.8 Anion Gap 9 6 BUN 32 H 33 H Creatinine 1.26 H 1.05 H Estimated GFR 40 L 50 L Random Glucose 93 96 Calcium 7.9 L 7.8 L Troponin I 1.37 H* D Urine Color Urine Clarity Urine pH Ur Specific [place] Urine Protein Urine Glucose (UA) Urine Ketones Urine Occult Blood Urine Nitrate Urine Bilirubin Urine Urobilinogen Ur Leukocyte Esterase Urine RBC Urine WBC Ur Squamous Epith Cells Urine Bacteria Micro UA Comment Ur Microscopic Review Urine Culture Comments Result Diagrams: 01/27/18 10:00 01/30/18 07:55 Microbiology: Microbiology 01/27/18 10:00 Urine Culture - Final Catheterized Urine Imaging: ITS Impressions Venous Doppler Study 01/27/18 09:44 CONCLUSION: 1. Negative for deep venous thrombosis Chest X-Ray 01/29/18 00:00 CONCLUSION: Interval improvement. Small bilateral pleural effusions remain. Chest Ultrasound 01/30/18 00:00 CONCLUSION: 1. There is a small to moderate size pleural effusion. However, patient is not consentable and family has declined thoracentesis. Patient/Family Conference Present at Family Conference: Rosaura Fox, Daughters son in law Mykel, patient Family Conference Location: Bedside Issues Discussed: * Palliative care role, purpose, approach * Additional medical, psychosocial, and spiritual history * Patients general health, functional status, and cognitive changes in the months leading up to the current hospitalization * lPatient/family understanding of the current medical problems * limited discussion Patient/family understanding of prognosis * limited discussion Patients goals of care as best understood from conversations * Current medical treatment options and benefits/burdens of those options * Likely scenarios comparing ongoing aggressive care with a transition to comfort measures only * legal decision maker - pending. Unable to fully assess pt's capacity d/t daughter Dominique's frequent interjections. Daughter Dominique says she is the legal decision maker but is unable to provide documentation. Per [place] statutes proxy decision making falls to majority of patient's 5 children. Unable to obtain their contact information during this evaluation, will try again and request accurints meanwhile. * Questions answered to the best of my ability * Palliative care contact information provided Goals pending. Limited discussion with pt 2/2 Dominique's and Mykel's frequent interjections. Pt unable to verbalize goals or a surrogate decision maker. Seems to have poor insight but she is oriented and answers appropriately when she chooses to answer. Family has poor insight. Family verbalizes conflicting goals of comfort and then wanting to take pt home from hospital today and take her a different hospital. Dominique repeatedly says "You can't keep her here." Mykel states repeatedly that pt told him she wanted to go home and be comfortable and wouldn't want procedures. "We bought healthy food for her." Pt states "I don't want to stay in a chair all day." Family not receptive to hospice discussion. Assessment and Plan - Disease Oriented Problem List (1) Congestive heart failure (2) Pulmonary edema (3) Elevated troponin Pertinent Non-Medical Issues: Psychosocial: Pt is . Has 5 children. Lives at home with a granddaughter. Spiritual: none Legal: Unable to fully assess pt's capacity d/t rosaura Fox's frequent interjections. Rosaura Fox says she is the legal decision maker but is unable to provide documentation. Per [place] statutes proxy decision making falls to majority of patient's 5 children. Unable to obtain their contact information during this evaluation, will try again and request accurints meanwhile. Ethical issues impacting care: none at this time Important Contacts: Rosaura Ricketts [phone] Granddaughter Padmaja Owens [phone] Prognosis: This is an 87 y/o female with hx HTN who presented 01/27 with SOB and chest pain. Found to have new onset CHF, NSTEMI. EF 30-35% and showed akinesis. Not candidate for cath until CHF exacerbation is improved. Pt's family expressing desire to treat her with diet alone; without medical mgmt her prognosis would be poor. With appropriate medical management pt could have fair prognosis. Code Status: No Code DNR Plan: - LEGAL DECISION MAKER - Unable to fully assess pt's capacity d/t rosaura Fox's frequent interjections. Rosaura Fox says she is the legal decision maker but is unable to provide documentation at this time. Per [place] statutes proxy decision making falls to majority of patient's 5 children. Unable to obtain their contact information during this evaluation, will try again and request accurints meanwhile. - CODE STATUS- no code/DNR - GOALS -Goals pending. Limited discussion with pt 2/2 Dominique's and Mykel's frequent interjections. Pt unable to verbalize goals or a surrogate decision maker. Seems to have poor insight but she is oriented and answers appropriately when she chooses to answer. Family has poor insight. Family verbalizes conflicting goals of comfort and then wanting to take pt home from hospital today and take her a different hospital. Dominique repeatedly says "You can't keep her here." Mykel states repeatedly that pt told him she wanted to go home and be comfortable and wouldn't want procedures. "We bought healthy food for her." Pt states "I don't want to stay in a chair all day." Family not receptive to hospice discussion. - SYMPTOMS - * pain - pt with exertional angina on presentation. denies pain on my eval. no pain meds ordered currently. has nitrostat. no recs at this time. * dyspnea - pt presented with SOB. found to have NSTEMI. No signs dyspnea on my eval, pt denies SOB. sat 97% on RA. no recs at this time - d/w Dr Palma, d/w sales intern - cursory background check reveals several possible children of pt but thus far unable to contact any - will follow up in day or 2, accurints pending, LATHE SET UP OPERATOR to follow up - Palliative care will continue to follow during hospital course as condition evolves, to assist patient/decision-maker with understanding of medical conditions, weighing benefits/burdens of treatment options, for clarification of goals of treatment. Additionally will assist with any symptoms of palliative concern Appreciation Thank you for the opportunity to participate in the care of Stephany Conte.
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
[2018-01-30] MEDS: Acetaminophen 325 MG Tablet PO PRN (22:12)
--- NOTE | 2018-01-31 07:55 | P.PNCA ---
Subjective Interval history: The patient is seen by herself without family at bedside. It appears family would not consent for thoracentesis yesterday. Still with positive fluid balance despite diuresis. The patient feels like her breathing is back to baseline. Lower extremity swelling has resolved. When asked if she has any chest pain she reports "not yet". Patient reports she is agreeable for cardiac medications. Medications and Allergies Allergies Allergy/AdvReac Type Severity Reaction Status Date / Time No Known Allergies Allergy Unverified 01/27/18 09:20 Home Medications Medication Instructions Recorded Confirmed Type No Known Home Medications 01/27/18 01/27/18 History Active Medications: Active Medications Acetaminophen (Tylenol) 650 mg PO Q4H PRN PRN Reason: Temp > 100.4 Last Admin: 01/30/18 22:12 Dose: 650 mg Al Hydrox/Mg Hydrox/Simethicone (Mag-Al Plus Susp Liq) 30 ml PO Q6H PRN PRN Reason: DYSPEPSIA Al Hydroxide/Mg Hydroxide (Milk Of Magnesia Liq) 30 ml PO DAILY PRN PRN Reason: SEVERE CONSITIPATION Aspirin (Aspirin Chew) 81 mg PO DAILY [facility] Last Admin: 01/30/18 09:19 Dose: 81 mg Calcium Carbonate (Tums Chew) 1,000 mg CHEW TID PRN PRN Reason: DYSPEPSIA Carvedilol (Coreg) 3.125 mg PO BID [facility] Last Admin: 01/30/18 22:16 Dose: 3.125 mg Docusate Sodium (Colace) 100 mg PO BID PRN PRN Reason: MILD CONSTIPATION Furosemide (Lasix Inj) 40 mg IV.PUSH BID@0900,1800 [facility] Last Admin: 01/30/18 17:42 Dose: 40 mg Heparin Sodium (Porcine) (Heparin Inj) 5,000 units SQ Q12HR [facility] Last Admin: 01/30/18 22:16 Dose: 5,000 units Nitroglycerin (Nitrostat Sl) 0.4 mg SL Q5M PRN PRN Reason: CHEST PAIN Ondansetron HCl (Zofran Inj) 4 mg IV.PUSH Q6H PRN PRN Reason: NAUSEA Potassium Chloride (K-Dur) 20 meq PO BID [facility] Last Admin: 01/30/18 22:12 Dose: 20 meq Senna/Docusate Sodium (Lourdes-Colace) 1 tab PO BID PRN PRN Reason: MODERATE - SEVERE CONSTIPATION Sodium Chloride (Ns Flush) 2 ml IV.FLUSH BID [facility] Last Admin: 01/30/18 22:15 Dose: 2 ml Sodium Chloride (Ns Flush) 2 ml IV.FLUSH UNSCH PRN PRN Reason: FLUSH AFTER USING IV ACCESS Physical Exam Vital signs: Vital Signs 01/30/18 08:00 01/30/18 09:00 01/30/18 10:00 Temperature 97.4 F L Pulse Rate 54 L 68 68 Respiratory Rate 18 Blood Pressure 107/56 L Pulse Oximetry 94 L 01/30/18 10:57 01/30/18 12:00 01/30/18 13:00 Temperature 98.0 F Pulse Rate 64 68 Respiratory Rate Blood Pressure 113/67 Pulse Oximetry 95 97 01/30/18 14:00 01/30/18 15:00 01/30/18 16:00 Temperature 98.0 F Pulse Rate 64 63 69 Respiratory Rate 18 Blood Pressure 107/58 L Pulse Oximetry 98 01/30/18 17:00 01/30/18 18:00 01/30/18 19:00 Temperature Pulse Rate 56 L 66 64 Respiratory Rate Blood Pressure Pulse Oximetry 01/30/18 20:00 01/30/18 21:00 01/30/18 22:00 Temperature 97.3 F L Pulse Rate 81 64 70 Respiratory Rate 18 Blood Pressure 127/71 Pulse Oximetry 96 01/30/18 23:00 01/31/18 00:00 01/31/18 01:00 Temperature 97.3 F L Pulse Rate 68 64 68 Respiratory Rate 18 Blood Pressure 112/64 Pulse Oximetry 96 01/31/18 02:00 01/31/18 03:00 01/31/18 04:00 Temperature 98.0 F Pulse Rate 64 58 L 62 Respiratory Rate 18 Blood Pressure 112/73 Pulse Oximetry 96 01/31/18 05:00 01/31/18 05:34 Temperature Pulse Rate 73 60 Respiratory Rate Blood Pressure Pulse Oximetry Intake & Output 01/30/18 01/31/18 01/31/18 18:59 06:59 18:59 Intake Total 740 / 740 240 / 240 Output Total 400 / 400 300 / 300 Balance 340 / 340 -60 / -60 Weight 101 lb 6.602 oz Intake: IV 100 / 100 Rocephin Inj 1,000 MG In NS Inj 100 / 100 100 ML @ 200 mls/hr IV.SIG Q24H [facility] Rx#:[id number] Oral 640 / 640 240 / 240 Output: Urine 400 / 400 300 / 300 Other: Date of Last Bowel Movement 01/27/18 Narrative: GENERAL: Well-developed fair-nourished. Thin, frail elderly female. In no acute distress. NECK: No carotid bruits. No JVD. CARDIOVASCULAR: Regular rate and rhythm. No murmur appreciated. RESPIRATORY: No accessory muscle use. Diminished breath sounds in the bases. MUSCULOSKELETAL: No clubbing or cyanosis. No edema. NEUROLOGICAL: Awake and alert. Normal speech. Results 01/27/18 10:00 01/30/18 07:55 Coagulation 01/29/18 Range/Units 16:01 PT 10.7 (9.8-11.6) sec Comprehensive Metabolic Panel 01/30/18 Range/Units 07:55 Sodium 144 (136-145) meq/L Potassium 4.0 (3.5-5.1) meq/L Chloride 112 H (98-107) meq/L Carbon Dioxide 25.8 (21.0-32.0) meq/L BUN 33 H (7-18) mg/dL Creatinine 1.05 H (0.50-1.00) mg/dL Calcium 7.8 L (8.5-10.1) mg/dL Intake and Output 01/30/18 01/31/18 01/31/18 22:59 06:59 14:59 Intake Total 740 / 740 240 / 240 Output Total 400 / 400 300 / 300 Balance 340 / 340 -60 / -60 Intake: IV 100 / 100 Rocephin Inj 1,000 MG In NS Inj 100 / 100 100 ML @ 200 mls/hr IV.SIG Q24H [facility] Rx#:[id number] Oral 640 / 640 240 / 240 Output: Urine 400 / 400 300 / 300 Other: Date of Last Bowel Movement 01/27/18 01/27/18 Weight 101 lb 6.602 oz - Imaging and Cardiology Imaging: Impressions Chest X-Ray 01/29/18 00:00 CONCLUSION: Interval improvement. Small bilateral pleural effusions remain. Chest Ultrasound 01/30/18 00:00 CONCLUSION: 1. There is a small to moderate size pleural effusion. However, patient is not consentable and family has declined thoracentesis. Assessment and Plan - Plan 87-year-old female with no known past medical history who presented for acute onset of shortness of breath NSTEMI: No chest pain currently. Troponin peaked at 1.77, now decreased to 1.3. Current discussion regarding goals of care, although from previous conversations patient and family goals seem to be for symptom management and apprehensive about any invasive cardiac procedures including LHC or CABG if indicated. Patient's insight is fair and she is quite frail as well, likely recommendation will be for medical management. Continue aspirin. Check lipid profile and consider addition of statin. 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 Appears ischemic with regional wall motion abnormalities on echo. On carvedilol 3.125 mg, appears to be maximally tolerated dose with borderline BP and heart rate. Acute systolic congestive heart failure: Improving. patient's goal is symptomatic improvement, AM labs pending today. If Cr is stable or improved would increase Lasix to 40 mg iv tid. Chest x-ray 01/29 with improving edema but still with moderate bilateral pleural effusions, still agree with recommendation for thoracentesis, thought patient and her family have declined. Monitor I's and O's, renal function, and electrolytes.
[2018-01-31] MEDS: Heparin - SQ 10,000 UNITS/ML Vial SQ SCH (09:16)
[2018-01-31 09:26] LABS: Calcium 8.3 mg/dL (8.5-10.1); Carbon Dioxide 26.2 meq/L (21.0-32.0); Potassium 4.2 meq/L (3.5-5.1)
[2018-01-31 10:10] LABS: Chol/HDL Ratio 3.5 Ratio; HDL Cholesterol 40.5 mg/dL (40.0-60.0)
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
[2018-01-31] MEDS: Lisinopril 5 MG Tablet PO SCH (18:03)
--- NOTE | 2018-01-31 22:04 | P.PNADD ---
Addendum to Inpatient Note Reason for Addendum: Additional Documentation Additional information: Subjective: At 21:06 hours, Kady Casillas and Belle were paged for a Halicat in Rm 243 in [facility]. Doctors responded to find the pt, Ms Conte, an 87 YO female w/PMHx CHF, COPD, HTN, and pulmonary edema who was admitted on 01/27 for pleural effusions and SOB, in bed with nasal cannula in place. Nursing and the Halicat nurse report the pt was assisted to the commode where she was working to produce stool and apparently had a vasovagal event wherein she slumped over but did not fall on the floor. Pt was quickly assisted back to the bed and placed on supplemental O2 and became responsive. Pt denies hitting her head and did not lose consciousness. There was no incontinence. Pt was alert and oriented when we were in the room with no visible deficits. It was noted that the pt has been hypotensive today with BP 99/71 while we were in the room. Pt has been afebrile and not tachycardic. CXR yesterday Denies CP or other sxs. Objective: VS during Halicat: Temp 96.8 axillary, HR 74, BP 99/71, 100% 4L NC Vital Signs - 8 hr 01/31/18 14:00 01/31/18 15:00 01/31/18 16:00 Temperature 98.0 F Pulse Rate 86 86 92 H Respiratory Rate 16 Blood Pressure 117/76 Pulse Oximetry 97 01/31/18 17:00 01/31/18 17:01 01/31/18 18:00 Temperature Pulse Rate 74 90 Respiratory Rate Blood Pressure Pulse Oximetry 97 01/31/18 21:02 01/31/18 21:08 Temperature Pulse Rate Respiratory Rate Blood Pressure Pulse Oximetry 99 100 GENERAL: Elderly, frail female lying in bed with NC in place. SKIN: Warm and dry extremities; however, forehead cool and clammy. No rash or lesions. HEAD: Normocephalic. Atraumatic. No teeth. EYES: No scleral icterus. No injection or drainage. NECK: Supple, trachea midline. No JVD or lymphadenopathy. CARDIOVASCULAR: Regular rate and rhythm without murmurs, gallops, or rubs. RESPIRATORY: Breath sounds equal bilaterally with bibasilar diminished breath sounds. No wheezing, rales or rhonchi. No accessory muscle use. GASTROINTESTINAL: Abdomen soft, non-tender, nondistended. MUSCULOSKELETAL: No cyanosis, or edema. BACK: Nontender without obvious deformity. Chest Ultrasound 01/30/18 00:00 CONCLUSION: 1. There is a small to moderate size pleural effusion. However, patient is not consentable and family has declined thoracentesis. A/P: 87 YO female with CHF, COPD, pleural effusion who is being diuresed with Lasix daily with hypotension resulting in likely vasovagal event while straining on the toilet. Pt alert and oriented to baseline following event. UA on 01/27 with likely contaminants, WBC 11.0, pt has been afebrile. Low suspicion for infection, but will r/o underlying UTI or bacteremia. -UA+C/S -Blood cx -Hold criteria on Coreg and Lisinopril due to hypotension --Hold dose if SBP<105 and/or DBP<65 -Pt was stable and did not require transfer Pt SDW Dr Casillas
[2018-01-31 23:09] LABS: Bilirubin,Urine Negative (Negative); Clarity,Urine Hazy (Clear); Color,Urine Yellow (Yellw/Straw); Glucose,Urine (UA) Negative (Negative); Hyaline Casts,Urine 1 /lpf (0-3); Leukocyte Esterase,Urine Large (Negative); Mucus,Urine Few /lpf (Occasional); Nitrite,Urine Negative (Negative); Specific Gravity,Urine 1.015 (1.002-1.035); Squamous Epithelial Cell,Urine 1 /hpf (0-5)
[2018-02-01] MEDS: Heparin - SQ 10,000 UNITS/ML Vial SQ SCH ×4 (01:11→23:09)
--- NOTE | 2018-02-01 07:45 | P.PNCA ---
Subjective Interval history: Patient had Pardeep called for syncopal episode while on the commode yesterday. Discussed with RN. Apparently she has been constipated for several days and while straining to have a bowel movement she slumped over and passed out for a few seconds. She does recall losing consciousness. Apparently there is no prolonged postictal period. Her SBP was around 107 prior to the episode and quickly returned to around 107 after the episode, however immediately during the episode her systolic dropped to 88. Telemetry reviewed with no significant arrhythmias noted. The patient does recall passing out last night. The patient denies any chest pain or shortness of breath today. Medications and Allergies Active Medications: Active Medications Acetaminophen (Tylenol) 650 mg PO Q4H PRN PRN Reason: Temp > 100.4 Last Admin: 01/30/18 22:12 Dose: 650 mg Al Hydrox/Mg Hydrox/Simethicone (Mag-Al Plus Susp Liq) 30 ml PO Q6H PRN PRN Reason: DYSPEPSIA Al Hydroxide/Mg Hydroxide (Milk Of Magnesia Liq) 30 ml PO DAILY PRN PRN Reason: SEVERE CONSITIPATION Aspirin (Aspirin Chew) 81 mg PO DAILY COUNT INCLUDES THE [facility] Last Admin: 01/31/18 09:16 Dose: 81 mg Atorvastatin Calcium (Lipitor) 20 mg PO HS COUNT INCLUDES THE [facility] Last Admin: 02/01/18 01:12 Dose: 20 mg Calcium Carbonate (Tums Chew) 1,000 mg CHEW TID PRN PRN Reason: DYSPEPSIA Carvedilol (Coreg) 3.125 mg PO BID COUNT INCLUDES THE [facility] Last Admin: 02/01/18 01:12 Dose: Not Given Docusate Sodium (Colace) 100 mg PO BID PRN PRN Reason: MILD CONSTIPATION Furosemide (Lasix) 40 mg PO DAILY COUNT INCLUDES THE [facility] Heparin Sodium (Porcine) (Heparin Inj) 5,000 units SQ Q8HR COUNT INCLUDES THE [facility] Last Admin: 02/01/18 06:44 Dose: 5,000 units Lisinopril (Prinivil) 5 mg PO DAILY COUNT INCLUDES THE [facility] Last Admin: 01/31/18 18:03 Dose: 5 mg Nitroglycerin (Nitrostat Sl) 0.4 mg SL Q5M PRN PRN Reason: CHEST PAIN Ondansetron HCl (Zofran Inj) 4 mg IV.PUSH Q6H PRN PRN Reason: NAUSEA Potassium Chloride (K-Dur) 20 meq PO BID COUNT INCLUDES THE [facility] Last Admin: 02/01/18 01:12 Dose: 20 meq Senna/Docusate Sodium (Lourdes-Colace) 1 tab PO BID PRN PRN Reason: MODERATE - SEVERE CONSTIPATION Sodium Chloride (Ns Flush) 2 ml IV.FLUSH BID COUNT INCLUDES THE [facility] Last Admin: 02/01/18 01:13 Dose: 2 ml Sodium Chloride (Ns Flush) 2 ml IV.FLUSH UNSCH PRN PRN Reason: FLUSH AFTER USING IV ACCESS Allergies Allergy/AdvReac Type Severity Reaction Status Date / Time No Known Allergies Allergy Unverified 01/27/18 09:20 Home Medications Medication Instructions Recorded Confirmed Type No Known Home Medications 01/27/18 01/27/18 History Physical Exam Vital signs: Vital Signs 01/31/18 08:00 01/31/18 09:00 01/31/18 10:00 Temperature Pulse Rate 70 80 88 Respiratory Rate 16 Blood Pressure Pulse Oximetry 99 01/31/18 10:38 01/31/18 11:00 01/31/18 12:00 Temperature 97.6 F Pulse Rate 86 98 H Respiratory Rate 14 Blood Pressure 127/77 Pulse Oximetry 99 01/31/18 13:00 01/31/18 14:00 01/31/18 15:00 Temperature Pulse Rate 100 H 86 86 Respiratory Rate Blood Pressure Pulse Oximetry 01/31/18 16:00 01/31/18 17:00 01/31/18 17:01 Temperature 98.0 F Pulse Rate 92 H 74 Respiratory Rate 16 Blood Pressure 117/76 Pulse Oximetry 97 97 01/31/18 18:00 01/31/18 19:00 01/31/18 20:00 Temperature 97.8 F Pulse Rate 90 84 82 Respiratory Rate 16 Blood Pressure 116/78 Pulse Oximetry 96 01/31/18 21:00 01/31/18 21:02 01/31/18 21:08 Temperature Pulse Rate 46 L Respiratory Rate Blood Pressure Pulse Oximetry 99 100 01/31/18 22:00 01/31/18 23:00 02/01/18 00:00 Temperature 96.8 F L Pulse Rate 78 79 68 Respiratory Rate 16 Blood Pressure 113/65 Pulse Oximetry 98 02/01/18 01:00 02/01/18 02:00 02/01/18 03:00 Temperature Pulse Rate 80 64 63 Respiratory Rate Blood Pressure Pulse Oximetry 02/01/18 04:00 02/01/18 05:00 02/01/18 06:00 Temperature 98.0 F Pulse Rate 68 68 68 Respiratory Rate 16 Blood Pressure 107/64 Pulse Oximetry 97 Intake & Output 01/31/18 02/01/18 02/01/18 18:59 06:59 18:59 Intake Total 740 / 740 240 / 240 Output Total 900 / 900 520 / 520 Balance -160 / -160 -280 / -280 Weight 99 lb 3.328 oz Intake: Oral 740 / 740 240 / 240 Output: Urine 900 / 900 520 / 520 Other: Date of Last Bowel Movement 01/30/18 02/01/18 # Bowel Movements 1 Narrative: GENERAL: Well-developed fair-nourished. Thin, frail elderly female. In no acute distress. NECK: No carotid bruits. No JVD. CARDIOVASCULAR: Regular rate and rhythm. No murmur appreciated. RESPIRATORY: No accessory muscle use. Diminished breath sounds in the bases. MUSCULOSKELETAL: No clubbing or cyanosis. No edema. NEUROLOGICAL: Awake and alert. Normal speech. Results 01/27/18 10:00 01/31/18 08:05 Lipids 01/31/18 01/31/18 Range/Units 07:55 08:05 Triglycerides Cancelled 111 Cholesterol Cancelled 142 HDL Cholesterol Cancelled 40.5 Cholesterol/HDL Ratio Cancelled 3.50 Comprehensive Metabolic Panel 01/30/18 01/31/18 Range/Units 07:55 08:05 Sodium 144 141 (136-145) meq/L Potassium 4.0 4.2 (3.5-5.1) meq/L Chloride 112 H 107 (98-107) meq/L Carbon Dioxide 25.8 26.2 (21.0-32.0) meq/L BUN 33 H 30 H (7-18) mg/dL Creatinine 1.05 H 1.10 H (0.50-1.00) mg/dL Calcium 7.8 L 8.3 L (8.5-10.1) mg/dL Intake and Output 01/31/18 02/01/18 02/01/18 22:59 06:59 14:59 Intake Total 740 / 740 240 / 240 Output Total 900 / 900 520 / 520 Balance -160 / -160 -280 / -280 Intake: Oral 740 / 740 240 / 240 Output: Urine 900 / 900 520 / 520 Other: Date of Last Bowel Movement 02/01/18 02/01/18 # Bowel Movements 1 Weight 99 lb 3.328 oz - Imaging and Cardiology Imaging: Impressions Chest Ultrasound 01/30/18 00:00 CONCLUSION: 1. There is a small to moderate size pleural effusion. However, patient is not consentable and family has declined thoracentesis. Assessment and Plan - Plan 87-year-old female with no known past medical history who presented for acute onset of shortness of breath NSTEMI: No chest pain currently. Troponin peaked at 1.77, now decreased to 1.3. Current discussion regarding goals of care, although from previous conversations patient and family goals seem to be for symptom management and apprehensive about any invasive cardiac procedures including LHC or CABG if indicated. Patient's insight is fair and she is quite frail as well, likely recommendation will be for medical management. Continue aspirin. LDL 79 consider adding statin. 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 Appears ischemic with regional wall motion abnormalities on echo. On carvedilol 3.125 mg, appears to be maximally tolerated dose with borderline BP and heart rate. Acute systolic congestive heart failure: Improving. Patient's goal is symptomatic improvement. Continue Lasix. Chest x-ray 01/29 with improving edema but still with moderate bilateral pleural effusions, still agree with recommendation for thoracentesis, thought patient and her family have declined. Monitor I's and O's, renal function, and electrolytes. Syncopal episode 01/31: Suspect vasovagal. No arrhythmia noted on telemetry. Hold parameters for carvedilol. Check CBC and BMP today. Possibly exacerbated by dehydration from over diuresis, Lasix has been decreased to p.o.
[2018-02-01] MEDS ORDERED: Furosemide 40 MG Tablet PO SCH (09:00)
[2018-02-01 09:32] LABS: Baso % (Auto) 0.5 % (0.0-2.0); Eos # (Auto) 0.3 th/mm3 (0.0-0.4); Eos % (Auto) 3.9 % (0.0-4.0); Hematocrit 41.8 % (35.0-46.0); Lymph # (Auto) 1.5 th/mm3 (1.0-4.8); Lymph % (Auto) 22.8 % (9.0-44.0); Mean Corpuscular HGB Conc 33.4 % (32.0-36.0); Mean Corpuscular Hemoglobin 32.6 pg (27.0-34.0); Mean Corpuscular Volume 97.4 fL (80.0-100.0); Mean Platelet Volume 10.3 fL (7.0-11.0); Mono # (Auto) 0.4 th/mm3 (0.0-0.9); Mono % (Auto) 6.6 % (0.0-8.0); Neut # (Auto) 4.5 th/mm3 (1.8-7.7); Neut % (Auto) 66.2 % (16.0-70.0); Platelet Count 231 th/mm3 (150-450); Red Cell Distribution Width 15.2 % (11.6-17.2); White Blood Count 6.8 th/mm3 (4.0-11.0)
[2018-02-01 10:17] LABS: Calcium 8.8 mg/dL (8.5-10.1); Potassium 4.4 meq/L (3.5-5.1)
--- NOTE | 2018-02-01 13:05 | P.PNPAL ---
Reason for Visit Reason for visit: a. To assist with evaluation and management of symptoms including: pain, dyspnea b. To assist medical decision maker(s) with: better understanding of current medical conditions; weighing benefits/burdens of medical treatment options; making medical treatment decisions. Subjective Subjective/Interval History: Pt resting in bed, napping. Rouses to verbal stimuli. Denies pain, SOB at this time. There was halicat called last night after suspected vasovagal episode while attempting to have a BM. She did improve after being given o2 via NC and returned to bed. Pt tells me she was trying to "go number 2" and she did feel SOB. She denies chest pain at that time and felt better subsequently. I explained to her that her heart is weak, she nodded and verbalized understanding. I asked if she wanted people to push on her chest if her heart stops or if she wanted to naturally and she said "I don't know." She asks me when lunch is and says she hasn't' eaten since breakfast. She says at home she only got a peanut butter sandwich and she was often hungry after and if she asked for food people would get mad at her and use the 'f' word. She continues to express apprehension about having to return home. Offered reassurance that that would not happen. She is consistently unwilling to name a possible HCS. When asked about possibly a family member she becomes mildly anxious and teary "they don't care" or "they don't know where I am." She does not seem to trust anyone. Family/Friend Interactions: Attempted to call possible relatives: Marco A : 1st number no voicemail set up, 2nd number arabella Saenz: same phone numbers listed as for Marco A Arzate: busy signal Lawanda: 1st number busy signal, 2nd number no voicemail set up Thanh Ricketts: busy signal Objective Vital Signs: Vital Signs 01/31/18 13:00 01/31/18 14:00 01/31/18 15:00 Temperature Pulse Rate 100 H 86 86 Respiratory Rate Blood Pressure Pulse Oximetry 01/31/18 16:00 01/31/18 17:00 01/31/18 17:01 Temperature 98.0 F Pulse Rate 92 H 74 Respiratory Rate 16 Blood Pressure 117/76 Pulse Oximetry 97 97 01/31/18 18:00 01/31/18 19:00 01/31/18 20:00 Temperature 97.8 F Pulse Rate 90 84 82 Respiratory Rate 16 Blood Pressure 116/78 Pulse Oximetry 96 01/31/18 21:00 01/31/18 21:02 01/31/18 21:08 Temperature Pulse Rate 46 L Respiratory Rate Blood Pressure Pulse Oximetry 99 100 01/31/18 22:00 01/31/18 23:00 02/01/18 00:00 Temperature 96.8 F L Pulse Rate 78 79 68 Respiratory Rate 16 Blood Pressure 113/65 Pulse Oximetry 98 02/01/18 01:00 02/01/18 02:00 02/01/18 03:00 Temperature Pulse Rate 80 64 63 Respiratory Rate Blood Pressure Pulse Oximetry 02/01/18 04:00 02/01/18 05:00 02/01/18 06:00 Temperature 98.0 F Pulse Rate 68 68 68 Respiratory Rate 16 Blood Pressure 107/64 Pulse Oximetry 97 02/01/18 07:00 02/01/18 08:00 02/01/18 09:00 Temperature 97.3 F L Pulse Rate 60 60 69 Respiratory Rate 18 Blood Pressure 113/60 Pulse Oximetry 97 02/01/18 10:00 02/01/18 11:00 02/01/18 11:32 Temperature 97.5 F L Pulse Rate 60 80 75 Respiratory Rate 17 Blood Pressure 93/53 L Pulse Oximetry 96 02/01/18 12:00 Temperature Pulse Rate 80 Respiratory Rate Blood Pressure Pulse Oximetry Intake & Output 01/31/18 02/01/18 02/01/18 18:59 06:59 18:59 Intake Total 740 / 740 240 / 240 Output Total 900 / 900 520 / 520 Balance -160 / -160 -280 / -280 Weight 45 kg Intake: Oral 740 / 740 240 / 240 Output: Urine 900 / 900 520 / 520 Other: Date of Last Bowel Movement 01/30/18 02/01/18 02/01/18 # Bowel Movements 1 Physical Exam: CONSTITUTIONAL/GENERAL: frail appearing woman SKIN: No jaundice, rashes, or lesions. No wounds seen anteriorly. Skin temperature appropriate. Not diaphoretic. HEAD: Atraumatic. Normocephalic. EYES: Extraocular motions intact. No scleral icterus. No injection or drainage. Fundi not examined. ENT: Hearing grossly normal. Nose without bleeding or purulent drainage. edentulous NECK: Trachea midline. Supple, nontender. CARDIOVASCULAR: RRR without murmurs, gallops, or rubs. No JVD. Peripheral pulses symmetric. RESPIRATORY/CHEST: Symmetric, unlabored respirations. Clear to auscultation. Diminished. Breath sounds equal bilaterally. No wheezes, rales, or rhonchi. GASTROINTESTINAL: Abdomen soft, non-tender, mildly distended. No hepato- splenomegaly, or palpable masses. No guarding. Bowel sounds present. MUSCULOSKELETAL: Extremities without clubbing, cyanosis, or edema. No mottling or clubbing. NEUROLOGICAL: Awake and alert. Oriented x 3. Motor and sensory grossly within normal limits. Follows commands. Moves all extremities. PSYCHIATRIC: limited insight. No obvious anxiety/depression. no apparent hallucinations or other psychotic thought process. Diagnostic Tests Laboratory: Laboratory Results - last 72 hr 01/29/18 01/30/18 01/31/18 16:01 07:55 07:55 WBC RBC Hgb Hct MCV MCH MCHC RDW Plt Count MPV Neut % (Auto) Lymph % (Auto) [place] % (Auto) Eos % (Auto) Baso % (Auto) Neut # (Auto) Lymph # (Auto) [place] # (Auto) Eos # (Auto) Baso # (Auto) WBC Differential Differential Comment PT 10.7 INR 1.1 Sodium 144 Potassium 4.0 Chloride 112 H Carbon Dioxide 25.8 Anion Gap 6 BUN 33 H Creatinine 1.05 H Estimated GFR 50 L POC Glucose Random Glucose 96 Calcium 7.8 L Triglycerides Cancelled Cholesterol Cancelled LDL Cholesterol, Calc Cancelled HDL Cholesterol Cancelled Cholesterol/HDL Ratio Cancelled Urine Color Urine Clarity Urine pH Ur Specific [place] Urine Protein Urine Glucose (UA) Urine Ketones Urine Occult Blood Urine Nitrate Urine Bilirubin Urine Urobilinogen Ur Leukocyte Esterase Urine RBC Urine WBC Urine WBC Clumps Ur Squamous Epith Cells Hyaline Casts Urine Mucus Micro UA Comment Ur Microscopic Review Urine Culture Comments 01/31/18 01/31/18 01/31/18 08:05 21:05 22:36 WBC RBC Hgb Hct MCV MCH MCHC RDW Plt Count MPV Neut % (Auto) Lymph % (Auto) [place] % (Auto) Eos % (Auto) Baso % (Auto) Neut # (Auto) Lymph # (Auto) [place] # (Auto) Eos # (Auto) Baso # (Auto) WBC Differential Differential Comment PT INR Sodium 141 Potassium 4.2 Chloride 107 Carbon Dioxide 26.2 Anion Gap 8 BUN 30 H Creatinine 1.10 H Estimated GFR 47 L POC Glucose 132 H Random Glucose 97 Calcium 8.3 L Triglycerides 111 Cholesterol 142 LDL Cholesterol, Calc 79 HDL Cholesterol 40.5 Cholesterol/HDL Ratio 3.50 Urine Color Yellow Urine Clarity Hazy H Urine pH 6.0 Ur Specific [place] 1.015 Urine Protein Negative Urine Glucose (UA) Negative Urine Ketones Negative Urine Occult Blood Negative Urine Nitrate Negative Urine Bilirubin Negative Urine Urobilinogen Less than 2 Ur Leukocyte Esterase Large H Urine RBC 3 Urine WBC 99 H Urine WBC Clumps Many H Ur Squamous Epith Cells 1 Hyaline Casts 1 Urine Mucus Few H Micro UA Comment Cath-culture ind Ur Microscopic Review Not Reportable Urine Culture Comments Cath-cult indicated 02/01/18 02/01/18 09:18 09:18 WBC 6.8 RBC 4.30 Hgb 14.0 Hct 41.8 MCV 97.4 MCH 32.6 MCHC 33.4 RDW 15.2 Plt Count 231 D MPV 10.3 Neut % (Auto) 66.2 Lymph % (Auto) 22.8 [place] % (Auto) 6.6 Eos % (Auto) 3.9 Baso % (Auto) 0.5 Neut # (Auto) 4.5 Lymph # (Auto) 1.5 [place] # (Auto) 0.4 Eos # (Auto) 0.3 Baso # (Auto) 0.0 WBC Differential . Differential Comment Auto diff final PT INR Sodium 139 Potassium 4.4 Chloride 104 Carbon Dioxide 27.0 Anion Gap 8 BUN 36 H Creatinine 1.27 H Estimated GFR 40 L POC Glucose Random Glucose 153 H Calcium 8.8 Triglycerides Cholesterol LDL Cholesterol, Calc HDL Cholesterol Cholesterol/HDL Ratio Urine Color Urine Clarity Urine pH Ur Specific [place] Urine Protein Urine Glucose (UA) Urine Ketones Urine Occult Blood Urine Nitrate Urine Bilirubin Urine Urobilinogen Ur Leukocyte Esterase Urine RBC Urine WBC Urine WBC Clumps Ur Squamous Epith Cells Hyaline Casts Urine Mucus Micro UA Comment Ur Microscopic Review Urine Culture Comments Result Diagrams: 02/01/18 09:18 02/01/18 09:18 Microbiology: Microbiology 01/31/18 22:36 Urine Culture - Preliminary Catheterized Urine No growth in 24 hours 01/27/18 10:00 Urine Culture - Final Catheterized Urine Imaging: ITS Impressions Venous Doppler Study 01/27/18 09:44 CONCLUSION: 1. Negative for deep venous thrombosis Chest X-Ray 01/29/18 00:00 CONCLUSION: Interval improvement. Small bilateral pleural effusions remain. Chest Ultrasound 01/30/18 00:00 CONCLUSION: 1. There is a small to moderate size pleural effusion. However, patient is not consentable and family has declined thoracentesis. Assessment and Plan - Disease Oriented Problem List (1) Congestive heart failure (2) Pulmonary edema (3) Elevated troponin Pertinent Non-Medical Issues: Psychosocial: Pt is . Has 5 children. Lives at home with a granddaughter. Spiritual: none Legal: Unable to fully assess pt's capacity d/t daughter Dominique's frequent interjections. Daughter Dominique says she is the legal decision maker but is unable to provide documentation. Per [place] statutes proxy decision making falls to majority of patient's 5 children. Unable to obtain their contact information during this evaluation, will try again and request accurints meanwhile. Ethical issues impacting care: none at this time Important Contacts: Daughter Zaira Ricketts [phone] Granddaughter Padmaja Owens [phone] Prognosis: This is an 87 y/o female with hx HTN who presented 01/27 with SOB and chest pain. Found to have new onset CHF, NSTEMI. EF 30-35% and showed akinesis. Not candidate for cath until CHF exacerbation is improved. Pt's family expressing desire to treat her with diet alone; without medical mgmt her prognosis would be poor. With appropriate medical management pt could have fair prognosis. Code Status: Full Code Plan: - LEGAL DECISION MAKER - Pt appears to be capacitated to make medical decisions. She is alert, oriented x 3, and answers appropriately but has simple understanding of concepts and difficult to fully assess d/t edentulous speech. Per [place] statutes proxy decision making falls to majority of patient's 5 children. - CODE STATUS- full code by default but pt previously expressed desire to " in my sleep" and " naturally." Today when asked she says she doesn't know what she would want. - GOALS - Goals pending further exploration. At this time her goals seem focused on the immediate present - food and safety. - SYMPTOMS - * pain - pt with exertional angina on presentation. denies pain on my eval. no pain meds ordered currently. has nitrostat. no recs at this time. * dyspnea - pt presented with SOB. found to have NSTEMI. No signs dyspnea on my eval, pt denies SOB. Halicat last night during BM, probably vasovagal response that was improved after o2 administration and rest. no recs at this time - cursory background check reveals several possible children of pt but thus far unable to contact any - accurints pending - Palliative care will continue to follow during hospital course as condition evolves, to assist patient/decision-maker with understanding of medical conditions, weighing benefits/burdens of treatment options, for clarification of goals of treatment. Additionally will assist with any symptoms of palliative concern Attestation Attestation: To help prompt me to consider important information that might be impacting today's encounter and assessment, information from prior notes written by myself or my colleagues may have been "brought forward" into today's note. My signature on this note, however, is an attestation that I personally performed the exam, history, and/or decision-making noted today, and, unless otherwise indicated, the interactions with patient, family, and staff as well as the review of records all occurred today. I also attest that the listed assessment and stated plan reflect my best clinical judgment today based on the combination of historical information, prior notes, and today's exam/ interactions. When time spent is documented, it refers only to time spent today by the signer, or if indicated, combined time spent today by collaborating physician/nurse practitioner.
[2018-02-01] MEDS: Lisinopril 5 MG Tablet PO SCH (13:53)
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
[2018-02-02] MEDS: Heparin - SQ 10,000 UNITS/ML Vial SQ SCH ×3 (07:07→21:42)
[2018-02-02 08:13] LABS: Calcium 8.5 mg/dL (8.5-10.1); Carbon Dioxide 27.8 meq/L (21.0-32.0)
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
[2018-02-02] MEDS: Lisinopril 5 MG Tablet PO SCH (10:54)
[2018-02-03] MEDS: Heparin - SQ 10,000 UNITS/ML Vial SQ SCH ×2 (05:04→16:10)
[2018-02-03 07:38] LABS: Calcium 8.5 mg/dL (8.5-10.1); Carbon Dioxide 27.7 meq/L (21.0-32.0); Potassium 4.9 meq/L (3.5-5.1)
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
[2018-02-03] MEDS ORDERED: Lisinopril 5 MG Tablet PO SCH (09:00)
[2018-02-03 09:16] VITALS: O2SAT 95
[2018-02-03 09:17] VITALS: BP 104/56; RESP 20; TEMP 97.3
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
[2018-02-03 19:44] VITALS: PULSE 74
== END 2018-02-03 17:10 ==
LOC: PHED 09:18 → PHEDA 11:48 → HCIS 18:56
PROVIDERS: ADMIT Hospitalist; ATTEND Hospitalist